=== PATIENT | female | born 1950 | race Caucasian/White ===

== ENCOUNTER 2018-11-18 10:51 | Inpatient (IN) ==
--- NOTE | 2018-11-18 11:17 | PROVIDER DOCUMENTATION ---
HPI-General Adult - General Chief Complaint: Extremity Pain Stated Complaint: FEET / LEGS RED / BRUISED Time Seen by Provider: 11/18/18 11:05 Source: patient Allergies/Adverse Reactions: Patient Allergies Allergy/AdvReac Type Severity Reaction Status Date / Time codeine AdvReac NAUSEA/VOMI Verified 11/18/18 11:02 TING Home Medications: Home Medication List Medication Instructions Recorded Confirmed Last Taken Type Allopurinol 300 mg PO DAILY 11/18/18 11/18/18 11/18/18 History Carbidopa/Levodopa [Sinemet 25/100] 1 tab PO TID 11/18/18 11/18/18 11/18/18 History Clindamycin [Cleocin] 300 mg PO Q8HR 11/18/18 11/18/18 11/18/18 History Duloxetine [Cymbalta] 60 mg PO DAILY 11/18/18 11/18/18 11/18/18 History Fenofibrate 54 mg PO DAILY 11/18/18 11/18/18 11/18/18 History Furosemide [Lasix] 80 mg PO DAILY 11/18/18 11/18/18 11/18/18 History Insulin NPH Hum/Reg Insulin Hm 35 unit SQ AC + HS 11/18/18 11/18/18 11/18/18 History [Humulin 70-30 Vial] Lisinopril [Zestril] 2.5 mg PO DAILY 11/18/18 11/18/18 11/18/18 History Melatonin 10 mg PO HS 11/18/18 11/18/18 11/17/18 History Metoprolol Succinate E.r. [Toprol 25 mg PO DAILY 11/18/18 11/18/18 11/18/18 History Xl] Pioglitazone [Actos] 30 mg PO DAILY 11/18/18 11/18/18 11/18/18 History Pramipexole Di-HCl [Mirapex] 1.5 mg PO Q8HR 11/18/18 11/18/18 11/18/18 History Simvastatin 20 mg PO DAILY 11/18/18 11/18/18 11/18/18 History Tramadol [Ultram] 50 mg PO BID 11/18/18 11/18/18 11/18/18 History - History of Present Illness -Gen Adult Nature of Presenting Problems: 67 YOF PRESENTS WITH C/O LLE CELLULITIS AND BLE EDEMA( CHRONIC AND REPORTS NO WORSE THAN USUAL). SHE HAS BEEN TREATED WITH BACTRIM AND THIS WAS CHANGES DUE TO KIDNEY FUNCTION AND IS NOW TAKING CLINDAMYCIN. SHE REPORTS THE REDNESS HAS GOTTEN WORSE. SHE ALSO NOTICED 2 BRUISES ON HER L FOOT AND SOME PAIN IN THIS FOOT. SHE DENIES FEVER, CHILLS, SOB, CP, N/V/D Location of Pain/Injury: reports: lower extremity Pain Radiation: reports: no radiation Quality of Pain: reports: aching Severity: reports: mild Onset/Duration: reports: other (CHRONIC BUT CELLULITIS PRESENT X A FEW WKS) Timing: reports: still present, getting worse Context/Activities at Onset: reports: none Modifying Factors: improves with: nothing Associated Symptoms: reports: denies symptoms Similar Symptoms Previously?: No Recently seen or treated by another doctor?: No Review of Systems - Adult - REVIEW OF SYSTEMS - ADULT Constitutional: reports: no symptoms reported. denies: see HPI, chills, fever, fatique, night sweats, weight gain, weight loss, other Eyes: reports: no symptoms reported. denies: see HPI, discharge, dry eyes, decreased vision, blurred vision, double vision, eye pain, redness, other Ears, Nose, Mouth & Throat: reports: no symptoms reported. denies: see HPI, ear discharge, ear pain, hearing loss, tinnitus, epistaxis, sinus problem, nose pain, loose teeth, mouth/dental pain, mouth swelling, hoarseness, throat pain, throat swelling, other Cardiovascular: reports: see HPI, edema, poor circulation (KNOWN VENOUS INS OF BLE). denies: no symptoms reported, chest pain, heart murmur, irregular heart rate, orthopnea, palpitations, PND, syncope, other Respiratory: reports: no symptoms reported. denies: see HPI, chronic cough, cough, dyspnea on exertion, excessive sputum production, hemoptysis, pleurisy, shortness of breath, wheezing, other Gastrointestinal: reports: no symptoms reported. denies: see HPI, abdominal pain, hematemesis, constipation, diarrhea, difficulty swallowing, frequent heartburn, nausea, poor appetite, rectal bleeding, vomiting, other Genitourinary: reports: no symptoms reported. denies: see HPI, dysuria, discharge, frequency, flank pain, frequent UTI's, hematuria, hesitency, incontinence, urinary retention, urgency, other Musculoskeletal: reports: see HPI, joint pain (L FOOT). denies: no symptoms reported, bone pain, back pain, frequent leg cramps, joint swelling, muscle aches, muscle weakness, neck pain, other Integumentary: reports: see HPI, skin sores/ulcer, skin thickening. denies: no symptoms reported, hives, hair loss, itching, mole changes, nail changes, rash, other Neurological: reports: no symptoms reported. denies: see HPI, ataxia, dizziness/vertigo, headache/migraines, loss of balance, numbness, paresthesia, seizure, slurred speech, syncope, tremors, other Psychiatric: reports: no symptoms reported. denies: see HPI, anxiety, anti- depressant use, alcohol/drug dependence, depression, emotional problems, insomnia, panic attacks, suicidal thoughts, other Endocrine: reports: no symptoms reported. denies: see HPI, change in skin pigment, excessive sweating, goiter, cold intolerance, heat intolerance, increased hunger, increased thirst, polyuria, other Hematologic/Lymphatic: reports: no symptoms reported. denies: see HPI, blood clots, easy bruising, low blood count, lymphedema, prolonged bleeding, swollen lymph nodes, transfusions, other Allergic/Immunologic: reports: no symptoms reported. denies: see HPI, allergic reactions, allergic rhinitis, asthma, eczema, food allergy, frequent infections, hay fever, hives, positive PPD, urticaria, other Past History - Adult - PAST MEDICAL HISTORY-ADULT Review of Records: reports: Nursing Assessment Review, Social history reviewed & non-contributory. Physical Exam-General - PHYSICAL EXAM-ADULT Initial Vital Signs Reviewed: Yes - CONSTITUTIONAL General Appearance: appears well, alert, no apparent distress - EYES Eyes: PERRL/EOMI, pink conjunctivae - HEAD, EARS, NOSE, MOUTH & THROAT HENMT: normocephalic/atraumatic, moist mucous membranes, normal ENT inspection - NECK Neck: non-tender, full range of motion, supple - RESPIRATORY Respiratory: chest non-tender, lungs clear, normal breath sounds, no pleuratic chest pain, no respiratory distress, no accessory muscle use - CARDIOVASCULAR Cardiovascular: normal peripheral pulses, regular rate, rhythm - GASTROINTESTINAL (ABDOMEN) Abdominal Exam: normal bowel sounds, non tender, soft - LYMPHATIC Lymphatic: no adenopathy - MUSCULOSKELETAL Extremity: erythema (LLE), pedal edema (BLE), swelling (BLE), tenderness (L FOOT/ANKLE) - SKIN Integumentary: normal color, normal turgor, warm/dry, erythema (LLE), warm (LLE) - NEUROLOGIC Neurologic: grossly normal - PSYCHIATRIC Psych/Mental Status: normal mood/affect, oriented x 3 Progress - PLAN OF CARE/RESULTS Progress/Plan/Lab Results: Vital Signs - 8 hr 11/18/18 10:57 Temperature 98 F Pulse Rate 80 Respiratory Rate 18 Blood Pressure 124/72 O2 Sat by Pulse Oximetry 97 Orders Category Date Time Status Saline Loc NOW Care 11/18/18 11:10 Active ANKLE 2 VIEWS LEFT [RAD] Stat Exams 11/18/18 11:10 Ordered FOOT COMPLETE LEFT [RAD] Stat Exams 11/18/18 11:10 Ordered CBC WITH ELECTRONIC DIFF [HEME] Stat Lab 11/18/18 11:10 Uncollected COMPREHENSIVE METABOLIC PANEL [CHEM] Stat Lab 11/18/18 11:10 Uncollected PROTIME WITH INR [COAG] Stat Lab 11/18/18 11:10 Uncollected PTT [COAG] Stat Lab 11/18/18 11:10 Uncollected Result Diagrams: 11/18/18 11:20 11/18/18 11:20 - XRAY 1 XRAY: Left XRAY Study: Ankle, Foot Impression: See EMR Report (EXAM: FOOT COMPLETE LEFT - 11/18/2018 HISTORY: PAIN, BRUISING TECHNIQUE: Left foot three views COMPARISON: None. FINDINGS: There is prominent calcaneal spurring at the Achilles tendon and plantar fascia insertions. There are degenerative changes elsewhere. There are apparent hammertoe deformities. There is accessory ossicle near the plantar cuboid. There is no fracture or dislocation identified. There are no erosive or destructive changes identified. IMPRESSION: Calcaneal spurring. Degenerative changes. No evidence of fracture or dislocation. Electronically signed by Yann Aguilar 11/18/2018 12:09 PM 11/18/18 1209 Interpreting Physician: Yann Aguilar MD Dictated Date/Time: 11/18/18 1208 cc: Ritu Fleming; Cheng Bergeron) - CONSULTS/PCP/HOSPITALIST Notification #1 *Consult/PCP/Hospitalist*: DR. GRANDE Time Discussed: 12:23 Consult Disposition: Admit Departure - Departure Date of Disposition Decision: 11/18/18 Time of Disposition Decision: 12:22 DIAGNOSIS: MARIANO (acute kidney injury), Cellulitis Disposition: ADMITTED INPATIENT 09 Certified Medical Emergency: Emergent Condition: Stable Additional Freetext Instructions: ED Follow Up Instructions: You have been treated by a care provider in the Emergency Department. These instructions are being provided to you so you can have an understanding of how to care for yourself upon discharge. Upon discharge from the Emergency Department, you are responsible for making arrangements for follow-up care by a physician of your choice. Take all prescribed medications as directed. Return to the Emergency Department immediately for any new or worsening symptoms. You may call the Physician Referral phone number at [phone] to obtain a list of Physicians who are taking new patients. Referrals and Follow-Ups: Cheng Bergeron [Primary Care Provider] - - Critical Care Note This patient required my direct & personal management of CC.: No Attestation - Physician/ DAVID Attestation Patient care was provided by Advanced Practice Provider:: Yes Advanced Practice Provider:: Ritu Fleming Advanced Practice Provider documentation review:: The Mid-level provider documentation, treatment plan and medical decision making was reviewed by the physician who agrees with all treatment and medical decision making by the P. The physician spent face to face time with patient:: No Advanced Practice Provider documentation review:: Supervising physician onsite and consulted in the evaluation and care of this patient. The physician did not have a face to face encounter with the patient.
[2018-11-18 11:40] LABS: BASO# 0.01 X1000 (0.0-0.2); BASO% 0.2 % (0.0-0.8); EOS# 0.08 X1000 (0.0-0.7); EOS% 1.5 % (0.0-10.0); HEMATOCRIT 36.2 % (37.0-47.0); HEMOGLOBIN 11.1 g/dL (12.0-16.0); IMM GRAN# 0.02 X1000 (0.0-0.04); IMM GRAN% 0.4 % (0.0-0.5); LYMPH# 0.85 X1000 (1.2-3.4); MCH 27.3 PG (27-31); MCHC 30.7 g/dL (33-37); MCV 89.2 FL (81-99); MONO# 0.27 X1000 (0.11-0.59); MONO% 5.1 % (1.7-9.3); MPV 10.4 FL (7.4-10.4); NEUT# 4.08 X1000 (1.4-6.5); NEUT% 76.8 % (42.2-75.2); PLT 170 X1000 (130-400); RBC 4.06 XMIL (4.2-5.4); RDW 16.7 % (11.5-14.5); WBC 5.31 X1000 (4.8-10.8)
[2018-11-18 11:58] LABS: AGAP 13; ALBUMIN 4.4 g/dL (3.5-5.0); ALKALINE PHOSPHATASE 61 U/L (32-104); BUN 56 mg/dL (8-22); CALCIUM 8.9 mg/dL (8.8-10.2); CHLORIDE 94 mmol/L (98-107); COSMO 290; CREATININE 2.6 mg/dL (0.5-0.9); ESTIMATED GFR 18; GLUCOSE 215 mg/dL (70-104); GOT 14 U/L (10-30); GPT < 5 U/L (10-36); SODIUM 134 mmol/L (136-145); TCO2 27 mmol/L (25-35); TOTAL PROTEIN 7.6 g/dL (6.3-8.3)
[2018-11-18 11:59] LABS: INR 1.78; PROTIME 21.6 Seconds (11.0-16.0); PTT 40.6 Seconds (22.3-41.8)
--- NOTE | 2018-11-18 12:09 | Diag Imaging Result Doc PS360 ---
EXAM: ANKLE 2 VIEWS LEFT - 11/18/2018 HISTORY: PAIN, BRUISING TECHNIQUE: AP and lateral left ankle two views COMPARISON: None. FINDINGS: There is soft tissue swelling. There is no fracture or dislocation identified. IMPRESSION: No evidence of fracture or dislocation. Electronically signed by Yann Aguilar 11/18/2018 12:07 PM
--- NOTE | 2018-11-18 12:11 | Diag Imaging Result Doc PS360 ---
EXAM: FOOT COMPLETE LEFT - 11/18/2018 HISTORY: PAIN, BRUISING TECHNIQUE: Left foot three views COMPARISON: None. FINDINGS: There is prominent calcaneal spurring at the Achilles tendon and plantar fascia insertions. There are degenerative changes elsewhere. There are apparent hammertoe deformities. There is accessory ossicle near the plantar cuboid. There is no fracture or dislocation identified. There are no erosive or destructive changes identified. IMPRESSION: Calcaneal spurring. Degenerative changes. No evidence of fracture or dislocation. Electronically signed by Yann Aguilar 11/18/2018 12:09 PM
[2018-11-18 14:34] LABS: UR CREAT RANDOM 39.8 mg/dL (11-20); UR PROT RANDOM 16.3 mg/dL
--- NOTE | 2018-11-18 14:57 | HISTORY AND PHYSICAL ---
CHIEF COMPLAINT: Extremity swelling and pain with bruise to left heel. HISTORY OF PRESENT ILLNESS: This is a 67-year-old female with a history of chronic lower extremity edema, vascular insufficiency, and lower extremity cellulitis. She states she noticed some bruising come up to her posterior left heel prompting her to come in for evaluation. X-ray of her ankle revealed no fracture or dislocation with x-ray of her foot showing calcaneal spurring. Labs revealed a creatinine of 2.6. Our only other creatinine is 09/25/2018 which was 1.2. The patient stated that she had been on 6 days of Bactrim 2 weeks ago which was changed to clindamycin by her physician. PAST MEDICAL HISTORY: Diabetes mellitus, hyperlipidemia, hypertension, chronic kidney disease stage 3, Parkinson's stage 2, lupus in remission, atrial fibrillation. PAST SURGICAL HISTORY: Cholecystectomy, tubal ligation, rotator cuff repair, and Achilles tendon rupture. SOCIAL HISTORY: She denies alcohol, tobacco, or illicit drug use. ALLERGIES: Codeine which causes nausea. HOME MEDICATIONS: A list will be obtained by the nursing staff and once verified will review and restart as appropriate. REVIEW OF SYSTEMS: Discussed with patient with pertinent positives stated in the HPI. She denied any syncope, dizziness, chest pain, palpitations, fevers or chills, any night sweats, PND, orthopnea, productive cough, any nausea, vomiting, diarrhea, constipation, black or bloody vomitus or stools, hematuria, dysuria, frequency, urgency. PHYSICAL EXAMINATION: GENERAL: This is a 67-year-old female who is lying on the stretcher in the emergency room in no distress. VITAL SIGNS: Blood pressure is 130/66 with a heart rate of 18, respirations are 97, temperature is 98 degrees oral, with room air saturations 96 to 98 percent. EYES: Pupils are equal, round, react to light. EOMs are intact. Sclerae are anicteric. HEENT: Normocephalic, atraumatic. Mucous membranes are moist. NECK: Supple with trachea midline. CARDIOVASCULAR: Regular rate and rhythm. S1 and S2 are appreciated. Peripheral pulses are palpable x4 extremities. PULMONARY: Breath sounds are clear with no increased work of breathing noted. Chest rises and falls symmetrically with respirations. GASTROINTESTINAL: Abdomen is soft, nontender, nondistended with bowel sounds in all 4 quadrants. SKIN: Warm and dry. She does have redness, warmth and edema to bilateral lower extremities from just below the knees down with bruising to her left posterior ankle as well as some signs of venous stasis. NEUROLOGIC: She is alert oriented x3. LABORATORY DATA: 1. WBC is 5.3 with hemoglobin 11.1, hematocrit 36.2, and platelets of 170,000. Sodium 134, potassium 5, BUN 56, creatinine 2.6 with a glucose of 215. Her GFR is 18. Her INR is 1.78. 2. Ankle x-ray revealed no evidence of fracture, dislocation. 3. Foot x-ray revealed calcaneal spurring and degenerative changes. ASSESSMENT AND PLAN: 1. Bilateral lower extremity cellulitis. Blood cultures have been drawn. Rocephin, elevate the foot of the bed with a Gatch at all times and monitor. Bilateral lower extremity Doppler will be obtained. 2. Acute kidney injury in the setting of chronic kidney disease.with recent Bactrim use. hold any renal toxic medications , renal dose medications as appropriate. IV hydration, keep strict I and O. Renal ultrasound will be obtained. 3. Diabetes mellitus type 2. pattern blood glucose with sliding scale insulin. 4. Hypertension. review her medications and restart as appropriate. 5. Parkinson's disease. continue her medication. 6. History of atrial fibrillation on chronic anticoagulation. continue Xarelto. 7. For deep venous thrombosis prophylaxis of course she is on Xarelto. 8. Gastrointestinal prophylaxis we will use Prilosec. 9. CBC and a renal profile in the morning. Plan has been discussed with Dr. Galarza. Further treatments pending hospital course. Dictated by SILAS Orourke for Chris Galarza MD cc: SILAS Orourke MD [facility]
--- NOTE | 2018-11-18 15:31 | Diag Imaging Result Doc PS360 ---
EXAM: US RENAL 2 (RETROPER) COMPLETE - 11/18/2018 HISTORY: MARIANO TECHNIQUE: Bilateral renal ultrasound COMPARISON: None. FINDINGS: The right kidney measures 9.8 x 5.6 x 5 cm in size, with cortical thickness of approximately 0.9 cm. Mass at The left kidney measures 10.3 x 5.3 x 5.4 cm in size, with cortical thickness of approximately 1.1 cm. There is no discrete renal mass, stone, or hydronephrosis identified. Images of the urinary bladder demonstrate no lesion. IMPRESSION: No discrete renal abnormality. Electronically signed by Yann Aguilar 11/18/2018 3:29 PM
[2018-11-18] MEDS: NS 1,000 ML IV SCH (16:59)
[2018-11-18] MEDS: SINEMET 25/100 PO SCH (16:59)
[2018-11-18] MEDS: HUMALOG (PARKWAY) SUBQ SCH ×2 (17:00→22:13)
[2018-11-18] MEDS: ROCEPHIN 1 GM in NS 50 ML IV SCH (17:00)
[2018-11-18 17:44] LABS: BILIRUBIN URINE NEGATIVE (NEGATIVE); BLOOD URINE NEGATIVE (NEGATIVE); GLUCOSE URINE NEGATIVE (NEGATIVE); KETONE URINE NEGATIVE (NEGATIVE); LEUKOCYTES URINE NEGATIVE (NEGATIVE); NITRITE URINE NEGATIVE (NEGATIVE); PROTEIN URINE TRACE mg/dL (NEGATIVE); SP GRAVITY URINE 1.005; UROBILINOGEN URINE NORMAL
[2018-11-18 17:45] LABS: CLARITY CLEAR (CLEAR); COLOR YELLOW
[2018-11-18 17:49] LABS: URINE SOURCE CLEAN CATCH
[2018-11-18 17:50] LABS: URINE BACTERIA NEGATIVE /HFP; URINE CAST NONE SEEN /LPF; URINE CRYSTAL NONE SEEN /HPF; URINE EPITHELIAL CELLS >10 /HPF (<10); URINE RBC <10 /HPF (<10); URINE WBC <10 /HPF (<10); URINE YEAST NONE SEEN /HPF
--- NOTE | 2018-11-18 20:57 | HISTORY AND PHYSICAL ---
ADDENDUM: I saw the patient [id number] while she was still at the emergency room. This is a 67- year-old female who has been having left leg cellulitis and now has developed acute kidney injury in the setting of chronic kidney disease with also recent Bactrim usage with possible intrarenal tubular crystallization off Bactrim. She is going to be admitted to the medical-surgical floor and we are going to give her IV hydration along with antibiotic ceftriaxone intravenously to address her cellulitis. Further recommendations will be given as per hospital course. I fully agree with the assessment and plan of nurse practitioner Kathy Henriquez. cc: Chris Galarza MD
[2018-11-18] MEDS: NEURONTIN PO PRN (22:14)
[2018-11-19] MEDS: NS 1,000 ML IV SCH (05:32)
[2018-11-19] MEDS: PRILOSEC PO SCH (06:03)
[2018-11-19] MEDS: NEURONTIN PO PRN ×2 (06:03→17:14)
[2018-11-19] MEDS: HUMALOG (PARKWAY) SUBQ SCH ×4 (06:04→20:35)
[2018-11-19 06:28] LABS: BASO# 0.01 X1000 (0.0-0.2); BASO% 0.2 % (0.0-0.8); EOS# 0.09 X1000 (0.0-0.7); EOS% 2.1 % (0.0-10.0); HEMOGLOBIN 10.5 g/dL (12.0-16.0); IMM GRAN# 0.01 X1000 (0.0-0.04); IMM GRAN% 0.2 % (0.0-0.5); LYMPH# 1.07 X1000 (1.2-3.4); LYMPH% 24.9 % (20.5-51.1); MCH 27.1 PG (27-31); MCV 90.4 FL (81-99); MONO# 0.28 X1000 (0.11-0.59); MONO% 6.5 % (1.7-9.3); MPV 10.6 FL (7.4-10.4); NEUT# 2.83 X1000 (1.4-6.5); NEUT% 66.1 % (42.2-75.2); PLT 146 X1000 (130-400); RBC 3.87 XMIL (4.2-5.4); WBC 4.29 X1000 (4.8-10.8)
[2018-11-19 06:42] LABS: ALBUMIN 3.8 g/dL (3.5-5.0); CALCIUM 8.7 mg/dL (8.8-10.2); PHOSPHORUS 3.6 mg/dL (2.7-4.5); POTASSIUM 4.4 mmol/L (3.5-5.1)
[2018-11-19] MEDS: SINEMET 25/100 PO SCH ×3 (09:57→16:58)
[2018-11-19] MEDS: CYMBALTA PO SCH (09:57)
--- NOTE | 2018-11-19 13:23 | Extremity Venous Study ---
EXAM: Venous U/S Bilateral Legs 11/19/2018 HISTORY: LE edema TECHNIQUE: Compression venous ultrasound of the lower extremities with color Doppler flow COMMENT: The deep veins of the lower extremities are compressible and demonstrate normal color Doppler flow with augmentation. There is no evidence of superficial venous thrombosis. IMPRESSION: No evidence of deep venous thrombosis. Electronically signed by Man Pascual 11/19/2018 1:21 PM
[2018-11-19] MEDS: ROCEPHIN 1 GM in NS 50 ML IV SCH (14:41)
[2018-11-19] MEDS: XARELTO PO SCH (17:08)
--- NOTE | 2018-11-19 19:13 | PROGRESS NOTE ---
DATE: 11/19/2018 SUBJECTIVE: Patient notes that she is feeling a lot better although she is still having some pretty significant ankle pain. She notes this is new. Seems to be hurting worse with ambulation. OBJECTIVE: Temperature 98, pulse 77, respiratory rate 18, BP 146/77.General: Patient is awake currently in no distress. HEENT: Normocephalic. Neck: Supple. Cardiovascular: Regular rate. Chest: Clear. Abdomen: Soft. Extremities: Moves all extremities. Does have some erythema around her left ankle, more so than her right, but also some pink bruising noted. ASSESSMENT: 1. Bilateral lower extremity cellulitis appears to be improved. 2. Left ankle pain. 3. Acute kidney injury. Creatinine is improved down to 2.0 from 2.6. This is felt to be caused from Bactrim. 4. Diabetes type 2. 5. Hypertension. 6. Parkinson disease. 7. History of atrial fibrillation. PLAN: We will continue patient in the hospital. Continue antibiotics. Hopefully, her ankle pain will improve, if not may need imaging studies tomorrow. Further orders as needed. Hopefully home over the next 1 or 2 days. cc: Srikanth Swanson MD
[2018-11-19] MEDS ORDERED: ZYRTEC PO SCH (20:30)
[2018-11-19] MEDS: MIRAPEX PO SCH (20:36)
[2018-11-19] MEDS: MELATONIN PO SCH (20:36)
[2018-11-20] MEDS: PRILOSEC PO SCH (06:12)
[2018-11-20] MEDS: MIRAPEX PO SCH ×3 (06:12→20:24)
[2018-11-20] MEDS: NEURONTIN PO PRN ×3 (06:12→20:28)
[2018-11-20] MEDS: HUMALOG (PARKWAY) SUBQ SCH ×4 (06:13→21:00)
[2018-11-20 06:36] LABS: POTASSIUM 4.3 mmol/L (3.5-5.1)
[2018-11-20 06:37] LABS: ALBUMIN 3.8 g/dL (3.5-5.0); CALCIUM 8.5 mg/dL (8.8-10.2); CREATININE 1.5 mg/dL (0.5-0.9); PHOSPHORUS 2.8 mg/dL (2.7-4.5)
[2018-11-20] MEDS: CYMBALTA PO SCH ×2 (08:37→20:23)
[2018-11-20] MEDS: SINEMET 25/100 PO SCH ×3 (08:37→17:14)
[2018-11-20] MEDS: TRICOR PO SCH (08:37)
[2018-11-20] MEDS ORDERED: TOPROL XL PO SCH (09:00)
--- NOTE | 2018-11-20 14:36 | PROGRESS NOTE ---
DATE: 11/20/2018 SUBJECTIVE: The patient continues to report pain in the left ankle. Even though we have done an x-ray that said no fractures, she still has swelling and pain that does not improve. That pain is worse with ambulation. OBJECTIVE: Vital Signs: Temperature 97.6 degrees, heart rate 79, respiratory rate 18, blood pressure 161/75, O2 saturation 100% on room air. General: This is a 67-year-old female, lying in bed in no acute distress. Cardiovascular: S1, S2 heard. No murmurs, gallops, or rubs. Regular rate and rhythm. Respiratory: Clear bilaterally to auscultation. No work of breathing or using accessory muscles. Abdomen: Soft, nontender to palpation. Bowel sounds present. No organomegaly. Extremities: The patient has minimal erythema around the left ankle. I do see some swelling all over the foot up to probably two-thirds of the leg. Peripheral pulses present in both legs. Neurological: The patient is alert and oriented x3. Moves all 4 extremities. LABORATORY DATA: Renal function: Creatinine is 1.5 with BUN 34. No BMP from today. ASSESSMENT AND PLAN: 1. Bilateral lower extremity cellulitis. That appears to be improved. The patient is on ceftriaxone 1 gram intravenously every 24 hours. She has been on Bactrim that has caused acute kidney injury. At this point, will continue with the same management. 2. Left ankle pain. Unfortunately, even though clinically this patient is doing better, her left ankle pain is still bothering her. In that regard, I am going to consult Orthopedics, and will go from there. 3. Acute kidney injury. Creatinine continues to improve. The patient reports that she has some chronic kidney disease, but she does not know what the stage is. The patient has been taking Bactrim, which is probably what has caused worsening renal function. At this point, will continue with the same management. 4. Diabetes mellitus type 2. Will continue with sliding scale insulin, and Accu-Chek before meals and also at bedtime. 5. Hypertension. Will continue home medications. 6. Parkinson's disease. Will continue home medications. 7. History of atrial fibrillation, stable. The patient reports that sometimes she gets dyspnea at minimal effort, so at this point will check an echocardiogram and will go from there. 8. Disposition. Will see what Orthopedics has to say. cc: Manuel Quarles MD
[2018-11-20] MEDS: ROCEPHIN 1 GM in NS 50 ML IV SCH (15:34)
[2018-11-20] MEDS: HUMULIN 70/30 (PARKWAY) SUBQ SCH (17:14)
[2018-11-20] MEDS: XARELTO PO SCH (17:14)
[2018-11-20] MEDS: TOPROL XL PO SCH (20:23)
[2018-11-20] MEDS: MELATONIN PO SCH (20:23)
[2018-11-20] MEDS: ZYRTEC PO SCH (20:24)
[2018-11-21] MEDS: MIRAPEX PO SCH ×3 (05:08→20:17)
[2018-11-21] MEDS: NEURONTIN PO PRN ×2 (05:09→13:05)
[2018-11-21 05:52] LABS: BASO# 0.01 X1000 (0.0-0.2); BASO% 0.2 % (0.0-0.8); EOS# 0.18 X1000 (0.0-0.7); EOS% 3.8 % (0.0-10.0); HEMATOCRIT 32.3 % (37.0-47.0); HEMOGLOBIN 9.5 g/dL (12.0-16.0); IMM GRAN# 0.01 X1000 (0.0-0.04); IMM GRAN% 0.2 % (0.0-0.5); LYMPH# 1.08 X1000 (1.2-3.4); LYMPH% 22.9 % (20.5-51.1); MCH 26.9 PG (27-31); MCHC 29.4 g/dL (33-37); MCV 91.5 FL (81-99); MONO# 0.31 X1000 (0.11-0.59); MONO% 6.6 % (1.7-9.3); NEUT# 3.13 X1000 (1.4-6.5); NEUT% 66.3 % (42.2-75.2); PLT 153 X1000 (130-400); RBC 3.53 XMIL (4.2-5.4); WBC 4.72 X1000 (4.8-10.8)
[2018-11-21 06:09] LABS: CALCIUM 8.6 mg/dL (8.8-10.2); CREATININE 1.6 mg/dL (0.5-0.9); POTASSIUM 4.3 mmol/L (3.5-5.1)
[2018-11-21 06:13] LABS: CALCIUM 8.4 mg/dL (8.8-10.2); CREATININE 1.6 mg/dL (0.5-0.9); PHOSPHORUS 3.1 mg/dL (2.7-4.5); POTASSIUM 4.5 mmol/L (3.5-5.1)
[2018-11-21] MEDS: PRILOSEC PO SCH (06:20)
[2018-11-21] MEDS: HUMALOG (PARKWAY) SUBQ SCH ×4 (06:44→21:26)
[2018-11-21] MEDS: SOLU-MEDROL IV SCH ×2 (08:57→17:31)
[2018-11-21] MEDS: SINEMET 25/100 PO SCH ×3 (08:57→17:31)
[2018-11-21] MEDS: TRICOR PO SCH (08:57)
[2018-11-21] MEDS: HUMULIN 70/30 (PARKWAY) SUBQ SCH ×2 (08:57→17:58)
[2018-11-21] MEDS ORDERED: TORADOL IV SCH (09:00)
[2018-11-21] MEDS: ZOSYN 2.25 GM in NS 50 ML IV SCH ×3 (10:55→21:36)
[2018-11-21] MEDS ORDERED: TEFLARO IV SCH ×2 (11:00)
[2018-11-21] MEDS ORDERED: TEFLARO 400 MG in NS 250 ML IV ONE (11:00)
[2018-11-21] MEDS ORDERED: NS IV SCH (11:00)
--- NOTE | 2018-11-21 12:34 | PROGRESS NOTE ---
DATE: 11/21/2018 SUBJECTIVE: Patient continues to have moderate pain in the left ankle, and today is a little bit more swollen. The pain is getting worse with ambulation. OBJECTIVE: Vital Signs: Temperature 97.9 degrees, heart rate 60, respiratory rate 18, blood pressure 110/62, and O2 saturation 97% on room air. General: This is a 67-year-old female lying in bed in no acute distress. Cardiovascular: S1, S2 heard. No murmurs, gallops, or rubs. Regular rate and rhythm. Respiratory: Clear bilaterally to auscultation. No work of breathing or using accessory muscles. Abdomen: Soft and nontender to palpation. Bowel sounds present. No organomegaly. Extremities: The patient has some minimal erythema around the left ankle, and also some around the leg. There is swelling all over the foot up to 2/3 of the leg. Peripheral pulses present in both legs. Neurological: Patient alert and oriented x3. Moves all 4 extremities. LABORATORY DATA: White cell count 4.72, hemoglobin 9.5, hematocrit 32.3 and platelets 153,000 with creatinine 1.6. ASSESSMENT AND PLAN: 1. Bilateral lower extremity cellulitis. I think at this point we will change ceftriaxone to something much more stronger. In this case, it is going to be Teflaro and Zosyn. We will continue with the same management. Because of the pain and considering her renal function, we will use some Solu-Medrol and will go from there. 2. Acute kidney injury. Creatinine continues to improve. I think she has chronic kidney disease stage 2. At this point, we will continue to monitor. 3. Diabetes mellitus type 2. We will continue with sliding scale insulin and Accu-Chek before meals, and also at bedtime. 4. Hypertension that is under control. We will continue home medications. 5. Parkinson's disease. We will continue home medication. 6. History of atrial fibrillation. We will continue with Xarelto. DISPOSITION: 1. We have consulted Orthopedics for the left ankle pain. We have ordered an MRI of the left ankle. We will see what it shows. We have changed antibiotics for this patient. cc: MD WILLA Zarate
--- NOTE | 2018-11-21 16:48 | Diag Imaging Result Doc PS360 ---
EXAM: MRI LOW EXTREMITY W/O CON-LEFT HISTORY: suspected osteomyelitis left ankle TECHNIQUE: Routine without contrast. COMPARISON: None. FINDINGS: There is markedly abnormal signal and enlargement of the tibialis anterior tendon and sheath within the ankle consistent with tendinitis and possibly infectious tenosynovitis. The abnormal signal and enlargement extends to its insertion on the medial cuneiform. There is associated skin thickening and subcutaneous edema consistent with cellulitis. There is a focal rounded thickening of the tibialis anterior tendon best seen image 15 sequence nine. Findings are suggestive of a focal tendon rupture. Correlate clinically. There is mild T1 hypointensity/T2 hyperintensity within the medial cuneiform. This may represent reactive edema or developing osteomyelitis. The remainder of the bone marrow signal intensity is within normal limits. Achilles and lateral tendons are unremarkable. There is probable benign tenosynovitis of the tibialis posterior tendon and peroneal tendons. No associated tendinitis. No bony fracture is identified. There is appropriate fat within the sinus Tarsi.. IMPRESSION: 1.Suspect infectious tenosynovitis/tendinitis of the tibialis anterior tendon. There is a suggestion of a proximal focal tendon rupture. Correlate clinically. There is associated cellulitis. 2.Mild signal abnormality within the medial cuneiform which could represent reactive edema or developing osteomyelitis. 3.Possible benign tenosynovitis of the tibialis posterior and peroneal tendons. Electronically signed by Frances Rosario 11/21/2018 4:46 PM
[2018-11-21] MEDS: XARELTO PO SCH (17:32)
[2018-11-21] MEDS: MELATONIN PO SCH (20:17)
[2018-11-21] MEDS: TOPROL XL PO SCH (20:18)
[2018-11-21] MEDS: CYMBALTA PO SCH (20:19)
[2018-11-21] MEDS: ZYRTEC PO SCH (20:19)
--- NOTE | 2018-11-21 20:53 | EKG Report ---
Test Performed on : 11/21/2018 8:01:38 PM Test Reason : Pauses Blood Pressure : / mmHG Vent. Rate : 109 BPM Atrial Rate : 131 BPM P-R Int : 000 ms QRS Dur : 090 ms QT Int : 298 ms P-R-T Axes : 000 -33 046 degrees QTc Int : 401 ms Atrial fibrillation. with rapid ventricular response. Left axis deviation Minimal voltage criteria for LVH, may be normal variant Nonspecific ST abnormality Abnormal ECG No previous ECGs available Confirmed by Toni Magallanes MD ([id number]) on 11/29/2018 3:17:14 PM
[2018-11-21] MEDS: CARDIZEM PO SCH (21:36)
--- NOTE | 2018-11-21 21:42 | ORTHOPAEDICS CONSULTATION ---
DATE: 11/21/2018 CHIEF COMPLAINT: Extremity swelling and pain with a bruise to her left ankle. HISTORY OF PRESENT ILLNESS: This is a 67-year-old female with history of diabetes mellitus, hypertension, hyperlipidemia, chronic kidney disease stage 3, Parkinson's, lupus, and atrial fibrillation. She reports that she noted some bruising come up on her left ankle for a few days. She states that her ankle began to swell and became severely painful. She came to the hospital to be evaluated and x-rays were performed at that time. X-ray showed no fracture or dislocation in the foot or ankle. Orthopedics was consulted to come and see the patient. PAST SURGICAL HISTORY: She has had: 1. Cholecystectomy. 2. Tubal ligation. 3. Rotator cuff repair. 4. Achilles tendon repair. SOCIAL HISTORY: Patient denies alcohol, tobacco, or drug use. ALLERGIES: The patient is allergic to codeine and Bactrim. HOME MEDICATIONS: List will need to be obtained. REVIEW OF SYSTEMS: A 12 point review of systems was performed and pertinent positives as listed in HPI. PHYSICAL EXAMINATION: General: The patient is awake, alert, sitting on the bed and in no distress. Vital Signs: Temperature 97.9 degrees, pulse rate 86, respiratory rate 20, blood pressure 139/71, oxygen saturation 90% on room air. HEENT: Head is atraumatic, normocephalic. Eyes equal, round, reactive. Neck: Supple. Cardiovascular: Regular rate and rhythm at this time. Pulmonary: There is equal chest expansion, rise, and fall. Gastrointestinal: Abdomen is soft and nontender. Extremities: Left lower extremity does have some mild redness and warmth to it. There is some edema to the left ankle. There is decreased range of motion to the ankle due to pain. There are good pedal pulses. There is good capillary refill in the toes. There is some decreased sensation along the left lower extremity. There is a small 3 mm abrasion to the anterior portion of her left lower extremity that the patient stated she got several days ago and it began to turn red. LABORATORY DATA: White blood cell 4.72, hemoglobin 9.5, hematocrit 32.3, platelets 153,000. INR 1.78. Sodium 135, potassium 4.3, chloride 102, BUN 27, creatinine 1.6, glucose 116, calcium is 8.6. ASSESSMENT: 1. Left lower extremity cellulitis. 2. Osteomyelitis of the medial cuneiform. 3. Tibialis anterior tendon rupture. PLAN: At this time, with the patient's history and present illness, we recommend 6 to 8 weeks of intravenous antibiotic therapy via Dr. Nassar or Infectious Disease. The patient will need to follow up in clinic and likely go into a boot for about 6 weeks to see if the infection can calm down before any type of surgery can be discussed. The patient will need to follow up in clinic to see how she is doing. We will follow her and check back on her later to see how she is doing. The patient will follow up with Dr. Sheldon in the office and they will come up with a further plan for her when her infection gets under control. Dictated by SILAS Strong for Hermilo Sheldon MD cc: SILAS Strong MD
[2018-11-22] MEDS: CARDIZEM PO SCH ×4 (03:49→21:48)
[2018-11-22] MEDS: ZOSYN 2.25 GM in NS 50 ML IV SCH ×2 (03:57→09:29)
[2018-11-22] MEDS ORDERED: NS IV SCH (04:00)
[2018-11-22] MEDS ORDERED: TEFLARO IV SCH (04:00)
[2018-11-22] MEDS: MIRAPEX PO SCH ×3 (04:12→21:52)
[2018-11-22] MEDS: SOLU-MEDROL IV SCH (04:12)
[2018-11-22] MEDS: PRILOSEC PO SCH (06:43)
[2018-11-22] MEDS: HUMALOG SUBQ SCH ×4 (06:46→21:53)
[2018-11-22] MEDS ORDERED: HUMALOG SUBQ SCH (07:00)
[2018-11-22] MEDS: HUMULIN 70/30 SUBQ SCH ×2 (07:08→16:53)
[2018-11-22] MEDS ORDERED: NS 250 ML ONE (09:04)
--- NOTE | 2018-11-22 09:19 | EKG Report ---
Test Performed on : 11/22/2018 09:09:13 AM Test Reason : convert to SB Blood Pressure : / mmHG Vent. Rate : 055 BPM Atrial Rate : 055 BPM P-R Int : 312 ms QRS Dur : 100 ms QT Int : 458 ms P-R-T Axes : 024 -20 -15 degrees QTc Int : 438 ms Sinus bradycardia. with 1st degree AV block. Minimal voltage criteria for LVH, may be normal variant Borderline ECG When compared with ECG of 21-NOV-2018 20:01, (Unconfirmed) Sinus rhythm. has replaced Atrial fibrillation. Vent. rate has decreased BY 54 BPM T wave inversion now evident in Inferior leads Confirmed by Shira St MD ([id number]) on 11/22/2018 12:11:34 PM
[2018-11-22 09:21] LABS: CALCIUM 9.2 mg/dL (8.8-10.2); CREATININE 1.2 mg/dL (0.5-0.9); POTASSIUM 5.2 mmol/L (3.5-5.1)
[2018-11-22] MEDS: SINEMET 25/100 PO SCH ×3 (09:24→16:52)
[2018-11-22] MEDS: TRICOR PO SCH (09:24)
[2018-11-22 10:55] LABS: INR 1.54; PROTIME 18.8 Seconds (11.0-16.0)
--- NOTE | 2018-11-22 13:46 | CONSULTATION ---
DATE OF CONSULTATION: 11/22/2018 IMPRESSION: 1. Episode of atypical atrial flutter with rapid ventricular rate now converted back to sinus rhythm. Patient has history of previous paroxysmal atrial fibrillation, and has already been on anticoagulation with Xarelto. Long-term along with low-dose beta gaurav. 2. Currently admitted with left lower extremity. Cellulitis and apparent osteomyelitis of left heel. Patient has also been found have tibialis anterior tendon rupture. She has been treated with antibiotics and immobilization. 3. Type 2 diabetes mellitus. 4. Hypertension. 5. Chronic kidney disease stage 3. RECOMMENDATIONS: 1. Gently increase rate control measures cautiously due to concerns regarding potential sinus node dysfunction. Addition of low-dose Cardizem reasonable. Alternatively, may consider gently increasing metoprolol dose. Need to guard against excessive bradycardia given potential for tachycardia/bradycardia syndrome. 2. Continue anticoagulation with Xarelto. 3. Conservative cardiovascular treatment plans overall in this setting. HISTORY: This 68-year-old white female with past history of previous atrial fibrillation episode, type 2 diabetes mellitus, hypertension, hyperlipidemia, and chronic kidney disease stage 3 was admitted for discomfort and left lower extremity swelling. She has had some bruising in her distal left lower extremity which has not been healing. She has been found to have osteomyelitis of the left heel, left lower extremity cellulitis, and tibialis anterior tendon rupture. She is being treated with antibiotics and immobilization at present. While monitored, she demonstrated episode of atypical atrial flutter with rapid ventricular rate. She spontaneously converted back to sinus rhythm. There is no history of coronary disease or angina. She is not very active. PAST MEDICAL HISTORY: 1. Previous atrial fibrillation. 2. Type 2 diabetes mellitus. 3. Obesity. 4. Hyperlipidemia. 5. Hypertension. 6. Chronic kidney disease stage 3. 7. Parkinson's disease. 8. Lupus. 9. Venous insufficiency lower extremities. 10. Obstructive sleep apnea. PAST SURGICAL HISTORY: Includes cholecystectomy, tubal ligation, rotator cuff repair and Achilles tendon repair. ALLERGIES: She is allergic or intolerant to codeine. MEDICATIONS: As listed. SOCIAL HISTORY: She is . Retired. She lives at home. She does not smoke or use alcohol. FAMILY HISTORY: Negative for premature coronary disease. REVIEW OF SYSTEMS: Pulmonary: Noncontributory beyond history of present illness. Gastrointestinal: Noncontributory beyond history of present illness. Constitutional: Noncontributory beyond history of present illness. Remainder of review of systems negative/noncontributory beyond history of present illness with 14 total systems reviewed. PHYSICAL EXAMINATION: General: An obese older white female in no distress. Vital signs: Blood pressure 137/74, heart rate 64 and regular, and weight 256 pounds. HEENT: Extraocular movements appear intact. Mucous membranes moist. Neck: Supple without jugular venous distention. There are no carotid bruits. Chest: Clear to auscultation. Cardiovascular: Cardiac exam reveals a regular rate and rhythm without appreciable murmur or gallop. Abdomen: Soft. Bowel sounds are normal. Extremities: The left lower extremity has an immobilizer on the distal left lower extremity. There is no significant edema in the distal right lower extremity. Neurologic: Exam reveals her to be alert and fully oriented. Speech is fluent. Moves all 4 extremities equally well. PERTINENT DATA: Twelve lead EKG performed this morning after she converted back to sinus rhythm demonstrates sinus bradycardia at 55 beats per minute and first-degree AV block. Nonspecific T- wave abnormality demonstrated. LABORATORY DATA: Sodium 141, potassium 5.2, chloride 105, carbon dioxide 23, BUN 28, creatinine 1.2, glucose 216, white blood cell count 4.72, hematocrit 32.3, and platelet count 153,000. cc: Rajesh Barber MD
[2018-11-22] MEDS: ROCEPHIN 2 GM in NS 50 ML IV SCH (15:05)
[2018-11-22] MEDS: CUBICIN 700 MG in NS 100 ML IV SCH (15:06)
[2018-11-22] MEDS: NEURONTIN PO PRN ×2 (15:38→21:47)
[2018-11-22] MEDS: XARELTO PO SCH (16:52)
--- NOTE | 2018-11-22 17:20 | PROGRESS NOTE ---
DATE: 11/22/2018 INTERVAL HISTORY: The patient's pain is slowly improving. Pretty comfortable at rest. He has pain with ambulation still. No acute events overnight. No new complaints. REVIEW OF SYSTEMS: A 12-point review of systems negative except as per interval history. LABS: Sodium 141, potassium 5.2, bicarbonate 23, BUN 28, creatinine 1.2, glucose 195 to 384. VITALS: T-max 98.3 degrees, pulse 60, respirations 15, blood pressure 113/81, O2 saturation 99% on room air. PHYSICAL EXAM: General: No acute distress. Vitals: As above. HEENT: Normocephalic, atraumatic. Moist mucous membranes. No cervical adenopathy. Cardiovascular: Regular rate and rhythm. No murmurs noted. Pulmonary: Clear to auscultation bilaterally. No wheezing, rales or rhonchi. Abdomen: Soft, nontender, nondistended. Bowel sounds positive. Extremities: Peripheral pulses decreased but intact. Left lower extremity in heavily dressed and boot. Neurologic: Cranial nerves grossly intact. No focal deficits. Psychiatric: Normal mood and affect. Awake, alert, oriented x3. Skin: No new rashes or lesions identified. ASSESSMENT AND PLAN: 1. Lower extremity cellulitis. Cellulitis component for infection, much improved on Zosyn and fluoro. ID on board and has adjusted antibiotics to Rocephin and daptomycin in light of osteomyelitis as below. 2. Left lower extremity osteomyelitis and tibialis anterior tendon rupture. The patient will require extended course of IV antibiotics. Transitioned to Rocephin and daptomycin today by Infectious Disease. Obtaining PICC line. Will set up home IV antibiotics and hopefully that can be arranged. The patient to be discharged home tomorrow. 3. Acute kidney injury on chronic kidney disease 3. Patient with baseline creatinine 1.2. Creatinine up to 2.6 on admission with treatment of infection and hydration. Creatinine has come back down to baseline. 4. Hyperkalemia. Mildly elevated potassium today. Will continue IV fluids, but no need for acute intervention at this time. 5. Diabetes mellitus type 2. Control not ideal. I adjusted sliding scale and will could monitor. 6. Parkinson's. Continue home medications. 7. Atrial fibrillation on Xarelto at home. Held for PICC placement. Will restart once PICC has been placed. 8. Hypertension. Reasonable control on current regimen with diltiazem and Toprol. Will likely go and restart home lisinopril on discharge if kidney function remains stable. We will likely hold home Lasix given dehydration and kidney injury on admission.
--- NOTE | 2018-11-22 19:06 | INFECTIOUS DISEASE CONSULT REP ---
DATE: 11/22/2018 CONCLUSION: The patient injured her left leg by falling on it and as seen on MRI, the following findings were found in the leg: Tendinitis, tenosynovitis, cellulitis, and osteomyelitis. RECOMMENDATIONS: I have discontinued ceftaroline and Zosyn and instead I put the patient on Rocephin 2 g IV daily and daptomycin 700 mg IV daily. Some of the side effects of the antibiotics, including rash, diarrhea and muscle toxicity have been explained to the patient who agrees with treatment. DISCUSSION: The patient fell on her leg. The leg became swollen and very painful. On MRI the findings that I mentioned above were found. The patient is having pain in the leg and also she has noted swelling and erythema of the skin. REVIEW OF SYSTEMS: Eyes and ears: She wears glasses but her hearing is okay. Neck: No stiffness. Respiratory: No cough or shortness of breath. Cardiac: No chest pain or palpitations. GI: No nausea, vomiting, or diarrhea. Genitourinary: No dysuria or flank pain. Bones, joints and muscles: See present illness. Neurologic: The patient has ataxia. She also has tremors due to her having Parkinson disease. PREVIOUS HOSPITALIZATIONS AND OPERATIONS: She has had a cholecystectomy, bilateral rotator cuff surgery, laminectomy of the spine, and surgery on her Achilles tendon. MEDICAL DISEASES: Positive for obesity, diabetes mellitus, Parkinson disease, and systemic lupus. At 1 time, the patient's blood pressure was elevated, but she said now it no longer is. Gout and hyperlipidemia. INFECTIOUS DISEASE HISTORY: Positive for UTI. Negative for pneumonia. FAMILY HISTORY: Positive for stroke, hypertension and cancer. SOCIAL HISTORY: The patient lives in the [facility]. She is a . She lives with 2 of her family members. She has 2 dogs and fish for pets. ALLERGIES: She has what she called an allergy to codeine which actually is an adverse reaction, which is nausea. The patient told me that she also is allergic to Norvasc and Septra but that is not listed in the computer. SOCIAL HISTORY: The patient does not smoke, drink alcoholic beverages or abuse drugs. HOME MEDICATIONS: The patient's medications taken at home include allopurinol, Sinemet, clindamycin, Cymbalta, fenofibrate, Lasix, gabapentin, insulin, lisinopril, melatonin, metoprolol, Actos, Mirapex, Xarelto, simvastatin and tramadol. PHYSICAL EXAMINATION: Vital Signs: Temperature is 98 degrees, pulse 59, respirations 18, blood pressure 126/54. The patient is 5 feet 6 inches tall, weighs 256 pounds. General: This is an obese, elderly female. She is in no acute distress. Head/eyes/ears/nose/throat: She can hear my spoken words and see near objects. She is wearing glasses. She does not have any white coating on her tongue. Neck: No meningismus. Lungs: Clear to auscultation. Cardiovascular: Heart rate is regular. Abdomen: Soft and nontender. Extremities: The patient's right leg is edematous but not erythematous. The patient's left leg is more swollen than the right leg and there also is erythema involving the lower part of the leg. Neurologic: The patient is awake. She can move her extremities. There is no tremor. Her sensation is intact to touch. Thank you for the consult. cc: Klever Sanchez MD
[2018-11-22] MEDS: ZYRTEC PO SCH (21:48)
[2018-11-22] MEDS: CYMBALTA PO SCH (21:48)
[2018-11-22] MEDS: TOPROL XL PO SCH (21:48)
[2018-11-22] MEDS: MELATONIN PO SCH (21:53)
[2018-11-23] MEDS ORDERED: MIRAPEX PO SCH (05:00)
--- NOTE | 2018-11-23 06:39 | EKG Report ---
Test Performed on : 11/23/2018 06:25:16 AM Test Reason : afib Blood Pressure : / mmHG Vent. Rate : 053 BPM Atrial Rate : 053 BPM P-R Int : 232 ms QRS Dur : 096 ms QT Int : 478 ms P-R-T Axes : 038 -08 003 degrees QTc Int : 448 ms Sinus bradycardia. with 1st degree AV block. Otherwise normal ECG When compared with ECG of 22-NOV-2018 09:09, No significant change was found Confirmed by Shira St MD ([id number]) on 11/29/2018 8:33:31 AM
[2018-11-23] MEDS: PRILOSEC PO SCH (06:41)
[2018-11-23] MEDS: HUMALOG SUBQ SCH ×2 (06:44→13:42)
[2018-11-23] MEDS: HUMULIN 70/30 SUBQ SCH (06:45)
[2018-11-23] MEDS: NEURONTIN PO PRN (07:22)
[2018-11-23 08:11] LABS: INR 1.83; PROTIME 21.5 Seconds (11.0-16.0)
--- NOTE | 2018-11-23 08:32 | ORTHOPAEDICS PROGRESS NOTE ---
DATE: 11/23/2018 SUBJECTIVE: Ms. Valencia lying in bed this morning. Overall pain seems well controlled. OBJECTIVE: Left lower extremity exam: Just some very slight erythema to the distal medial leg. Not that much swelling on exam today. When she tries to dorsiflex the ankle, we could see all the toes go up. She can dorsiflex a little bit at the ankle but not near as well as the right side. IMAGING: MRI was reviewed, which shows a tibialis anterior tendon rupture and cellulitis. There is a little bit of signal changes in the medial cuneiform. ASSESSMENT: 1. Right tibialis anterior rupture. 2. Left leg cellulitis plan. PLAN: I discussed with Erik about this left leg. She does have a tibialis anterior rupture. I would recommend surgical intervention for that so that she does not have a sustained footdrop. Unfortunately though with cellulitis I would not recommend doing that operation right now. I would let her cellulitis resolve before we did surgery to reattach the tibialis anterior tendon. In the meantime, she will be in a boot. She can be weight bear as tolerated while in the boot. There was some concern for osteomyelitis possibly in the medial cuneiform. It is a little bit of a holden area. You can get signal change in the bone just from the tibialis anterior tendon rupturing off of it which could account for the signal or it could be some signal from osteomyelitis. She is not having a lot of this swelling and erythema down on that area of the foot so would just watch things at this time. I would not recommend a surgical debridement of it right now. I would like to see her in clinic in about a week or 2. We will continue to follow. When it looks like she has resolved her cellulitis we will talk about repairing that tibialis anterior tendon. cc: Hermilo Sheldon MD
[2018-11-23 08:39] LABS: BASO# 0.01 X1000 (0.0-0.2); BASO% 0.1 % (0.0-0.8); EOS# 0.04 X1000 (0.0-0.7); EOS% 0.4 % (0.0-10.0); HEMATOCRIT 32.9 % (37.0-47.0); HEMOGLOBIN 10.5 g/dL (12.0-16.0); IMM GRAN# 0.02 X1000 (0.0-0.04); IMM GRAN% 0.2 % (0.0-0.5); LYMPH# 0.88 X1000 (1.2-3.4); LYMPH% 9.6 % (20.5-51.1); MCH 28.8 PG (27-31); MCHC 31.9 g/dL (33-37); MCV 90.4 FL (81-99); MONO# 0.44 X1000 (0.11-0.59); MONO% 4.8 % (1.7-9.3); MPV 10.6 FL (7.4-10.4); NEUT# 7.73 X1000 (1.4-6.5); NEUT% 84.9 % (42.2-75.2); PLT 166 X1000 (130-400); RBC 3.64 XMIL (4.2-5.4); RDW 18.5 % (11.5-14.5); WBC 9.12 X1000 (4.8-10.8)
[2018-11-23 08:46] LABS: CALCIUM 8.9 mg/dL (8.8-10.2); CREATININE 1.7 mg/dL (0.5-0.9); POTASSIUM 4.8 mmol/L (3.5-5.1)
[2018-11-23] MEDS ORDERED: CARDIZEM CD PO SCH (09:00)
[2018-11-23] MEDS: SINEMET 25/100 PO SCH ×2 (10:16→13:42)
[2018-11-23] MEDS: TRICOR PO SCH (10:16)
--- NOTE | 2018-11-23 11:35 | INFECTIOUS DISEASE PROGRESS NO ---
DATE: 11/23/2018 SUBJECTIVE: Ms. Valencia is going home today and the plan will be for her to have treatment for left lower extremity tenosynovitis, tendinitis w/cellulitis and possible osteomyelitis. We will plan on giving her daptomycin 700 mg IV daily and Rocephin 2 g IV daily for a total of 6 weeks. We will see her back in our office in 3 weeks. We have discussed the side effects of these medications to watch for and report, which include rash, diarrhea, muscle aches and pains more than her usual amount, as well as oral candidiasis and vaginal yeast. These plans have been discussed with and recommended by Dr. Sanchez. Dictated by SILAS Muir for Klever Sanchez MD cc: Klever Sanchez MD MTDTyra
[2018-11-23 12:11] VITALS: BP 131/68
[2018-11-23] MEDS: CUBICIN 700 MG in NS 100 ML IV SCH (13:41)
[2018-11-23] MEDS: ROCEPHIN 2 GM in NS 50 ML IV SCH (13:42)
--- NOTE | 2018-11-27 15:44 | DISCHARGE SUMMARY ---
ADMISSION DATE: 11/18/2018 DISCHARGE DATE: 11/23/2018 CONSULTATIONS: 1. Infectious Disease: Dr. Sanchez. 2. Orthopedic Surgery: Dr. Sheldon. 3. Cardiology: Dr. Barber. STUDIES: MRI of the left foot showing likely infectious tenosynovitis/tendinitis of the tibialis anterior tendon that was suggesting focal tendon rupture. This was associated with cellulitis overlying it. Also, it showed a mild signal abnormality in the medial cuneiform, which was favored to be developing osteomyelitis. Renal ultrasound unremarkable with no sign of obstruction. Venous ultrasound of the leg with no evidence of DVT. Initial creatinine 2.6. Discharge creatinine 1.7. HOSPITAL COURSE: The patient is a 67-year-old female with history of chronic lower extremity edema, venous stasis, vascular insufficiency, and multiple previous bouts of cellulitis. She had noticed some bruising on the left heel, and came in for evaluation. There had been concern for cellulitis as an outpatient. She has been started on Bactrim. On initial evaluation in the ED, she was found to have bilateral lower extremity cellulitis, acute kidney injury with a creatinine of 2.6, and uncontrolled diabetes. There was also concern for possible osteomyelitis so MRI was obtained which noted likely infectious tendinitis and osteomyelitis with possible partial tendon rupture as above. Orthopedics, Surgery and Infectious Disease were involved. Orthopedic Surgery recommended to put the patient in a boot, and stated that she may have to have surgery eventually, but not right now. Infectious Disease saw the patient and changed the antibiotics from ceftaroline and Zosyn to Rocephin and daptomycin. PICC line was obtained, and his antibiotics were set up for extended course as an outpatient. Continue treatment of the tendon, and bone infection. Her acute kidney injury resolved rapidly with fluids and treatment of her underlying infection. Creatinine trended from 2.6 down to 1.6, which would was fairly stable at. She had 1 creatinine as low as 1.2, but all further readings were 1.5 to 1.7 over a period of 4 to 5 days so it was felt like this was likely an outline there. Patient had one transient episode of hyperkalemia, but this resolved spontaneously. Potassium was only 5.2, and no EKG changes or other symptoms were noted so no aggressive intervention was required. She had a known episode of atrial fibrillation, and did have a brief episode of rapid ventricular response, but converted back spontaneously. Cardiology was involved and recommended coughing with rate control because of concerns regarding possible sinus node dysfunction. The addition of low-dose Cardizem resulted in some bradycardia so this was discontinued, and her home metoprolol was slightly increased, which seem to have good effect. Her blood sugar was uncontrolled initially, but did respond to slow titration of her medications. Other issues remained stable. DISCHARGE VITAL SIGNS: Temperature 97.5 degrees, pulse 64, respirations 14, blood pressure 131/68, and O2 saturation 93% on room air. DISCHARGE DIET: Cardiac diabetic. DISCHARGE MEDICATIONS: 1. Rocephin 2 g IV daily. 2. Daptomycin 7 mg IV daily. 3. Toprol-XL 50 mg p.o. daily. 4. Lisinopril 2.5 mg p.o. daily. 5. Xarelto 20 mg p.o. daily. 6. Ultram as previously prescribed. 7. Sinemet 25/100 t.i.d. 8. Simvastatin 10 mg p.o. daily. 9. Melatonin 10 mg p.o. at bedtime as needed. 10. Insulin 70/30 as previously prescribed. 11. Gabapentin 600 mg as previously prescribed. 12. Fenofibrate 54 mg daily. 13. Cymbalta 30 mg p.o. at bedtime. 14. Allopurinol 300 mg p.o. daily. 15. Actos 30 mg p.o. daily. 16. Pramipexole 1.5 mg p.o. q.8 hours. FOLLOWUP AND PLAN: Patient discharged home with PICC line on IV antibiotics now for treatment of infectious tendinitis and osteomyelitis. The patient to follow-up with PCP for blood pressure check and discussion of her insulin requirements. The patient is to follow up with ID for infection and with Orthopedics to re-evaluate her partial tendon rupture. TIME SPENT: Greater than 30 minutes spent arranging discharge and counseling patient.
== END 2018-11-23 15:20 | disposition home or self-care (01) | DRG 638 ==
LOC: P.ED 10:51 → SUATTDRO 14:27 → P.MEDSURG 14:27 → 2N 11-21 22:38
PROVIDERS: ATTEND Internal Medicine

== ENCOUNTER 2018-12-02 17:04 | Observation (INO) ==
[2018-12-02 17:39] LABS: HEMATOCRIT 36.2 % (37.0-47.0); HEMOGLOBIN 11.2 g/dL (12.0-16.0); MCH 27.8 PG (27-31); MCHC 30.9 g/dL (33-37); MCV 89.8 FL (81-99); PLT 105 X1000 (130-400); RBC 4.03 XMIL (4.2-5.4); RDW 16.6 % (11.5-14.5); WBC 5.14 X1000 (4.8-10.8)
[2018-12-02 17:40] LABS: BASO# 0.01 X1000 (0.0-0.2); BASO% 0.2 % (0.0-0.8); EOS# 0.08 X1000 (0.0-0.7); EOS% 1.6 % (0.0-10.0); IMM GRAN# 0.02 X1000 (0.0-0.04); IMM GRAN% 0.4 % (0.0-0.5); LYMPH# 0.58 X1000 (1.2-3.4); LYMPH% 11.3 % (20.5-51.1); MONO# 0.28 X1000 (0.11-0.59); MONO% 5.4 % (1.7-9.3); NEUT# 4.17 X1000 (1.4-6.5); NEUT% 81.1 % (42.2-75.2)
[2018-12-02 17:46] LABS: INR 1.35; PROTIME 16.9 Seconds (11.0-16.0)
[2018-12-02 18:15] LABS: ALB/GLOB RATIO 1.7; ALBUMIN 4.5 g/dL (3.5-5.0); CALCIUM 9.3 mg/dL (8.8-10.2); CREATININE 1.4 mg/dL (0.5-0.9); POTASSIUM 4.4 mmol/L (3.5-5.1); TOTAL BILIRUBIN 0.49 mg/dL (0.20-1.00); TOTAL PROTEIN 7.2 g/dL (6.3-8.3)
--- NOTE | 2018-12-02 18:18 | EKG Report ---
Test Performed on : 12/02/2018 5:20:17 PM Test Reason : sob Blood Pressure : / mmHG Vent. Rate : 105 BPM Atrial Rate : 105 BPM P-R Int : 242 ms QRS Dur : 086 ms QT Int : 322 ms P-R-T Axes : 034 -22 040 degrees QTc Int : 425 ms Sinus tachycardia. with 1st degree AV block. Possible Left atrial enlargement Left ventricular hypertrophy Abnormal ECG When compared with ECG of 23-NOV-2018 06:25, Vent. rate has increased BY 52 BPM Non-specific change in ST segment in Lateral leads Unconfirmed Result
[2018-12-02] MEDS ORDERED: LASIX IV ONE (18:28)
--- NOTE | 2018-12-02 18:34 | Diag Imaging Result Doc PS360 ---
CHEST-2 VIEWS - 12/02/2018 INDICATION: sob COMPARISON: None FINDINGS: There is a left PICC line in good position at the upper SVC. There is significant cardiomegaly and pulmonary vascular congestion. There is a small focal infiltrate in the left upper lobe. No large pleural effusion. IMPRESSION: Small infiltrate in the left upper lobe. Please follow-up until clear. Cardiomegaly and pulmonary vascular congestion. Electronically signed by Blanco Fallon 12/02/2018 6:32 PM
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
[2018-12-02] MEDS ORDERED: DUONEB (A & A) INH ONE (21:03)
[2018-12-03] MEDS ORDERED: VANCOMYCIN IV PER PHARMACY MISC SCH (01:05)
[2018-12-03] MEDS ORDERED: ZOFRAN IV PRN (01:05)
[2018-12-03] MEDS ORDERED: ULTRAM PO PRN (01:05)
--- NOTE | 2018-12-03 01:14 | HISTORY AND PHYSICAL ---
CHIEF COMPLAINT: Dyspnea. HISTORY OF PRESENT ILLNESS: The patient is a 68-year-old white female with recent admission for bilateral cellulitis, left extremity osteomyelitis, and infectious tendinitis with partial rupture. She was discharged on 11/23/2018 to go home on Rocephin and daptomycin. The patient had issues with kidney failure on her previous visit, and when she was discharged the last time her Lasix was held because of her kidney issues. The patient's lower extremity symptoms have continued to improve on the home Rocephin and daptomycin, but over the last 2 or 3 days she has had slowly progressive dyspnea with fatigue and decreased exercise tolerance. She does endorse feeling both hot and cold but has checked her temperature multiple times and has had no fevers at home. She denies chest pain or dysuria. Her cough is largely nonproductive. She has had some increased lower extremity edema. Her dyspnea and cough have been progressive and today worsened enough for her to come in. On evaluation in the ED she was found to have an elevated BNP, low normal oxygenation. She was admitted for further evaluation and treatment. REVIEW OF SYSTEMS: Twelve point review of systems was negative except as per the HPI. ALLERGIES: Allergy to Bactrim kidney failure, intolerant of some codeine, she has nausea. PAST MEDICAL HISTORY: CKD 3, diabetes, atrial fibrillation, hypertension, Parkinson's, hyperlipidemia, left foot osteomyelitis, left foot infectious tendinitis with partial rupture. PAST SURGICAL HISTORY: Cholecystectomy, tubal ligation, rotator cuff repair, Achilles rupture repair. SOCIAL HISTORY: The patient denies tobacco, alcohol or illicit drug use. FAMILY HISTORY: Parents , mom with a stroke, father with cancer of uncertain type. LABORATORY DATA: WBC 5.1, hemoglobin 11.2, hematocrit 36.2, platelets 105,000. Sodium 141, potassium 4.4, BUN 18, creatinine 1.4, glucose 169, total bilirubin 0.49, AST 19, ALT 5, alkaline phosphatase 69. Troponin negative. BNP 2674. Total protein 7.2, albumin 4.5. IMAGING: Chest x-ray with possible tiny infiltrate in the left upper lobe, cardiomegaly, pulmonary vascular congestion. VITAL SIGNS: T-max 98.5 degrees, pulse 20, blood pressure 144/92, O2 saturation 92% on room air. PHYSICAL EXAMINATION: GENERAL: No acute distress. VITAL SIGNS: As above. HEENT: Normocephalic, atraumatic. Moist mucous membranes. NECK: No cervical adenopathy. CARDIOVASCULAR: Slightly tachycardic but currently regular. No murmurs noted. PULMONARY: Bibasilar crackles noted. Otherwise clear to auscultation bilaterally. ABDOMEN: Soft, nontender, nondistended. Bowel sounds positive. EXTREMITIES: With 2+ edema in bilateral lower extremities. Erythema noted on previous hospitalization appears to be resolved. NEUROLOGIC: Cranial nerves grossly intact. No focal deficits identified. PSYCHIATRIC: Normal mood and affect. Awake, alert and oriented x3. SKIN: No new rashes or lesions identified. ASSESSMENT AND PLAN: 1. Dyspnea, likely acute on chronic CHF, possible pneumonia. The patient with progressive dyspnea and lower extremity edema over the last few days since discontinuing her Lasix. No previous diagnosis of CHF, but the patient is at high risk with diabetes, hypertension, morbid obesity, and paroxysmal atrial fibrillation. Already had some improvement with dose of Lasix in the ER. We will give another dose of Lasix in the morning, and get an echocardiogram to assess her cardiac function. Radiology concern for tiny infiltrate in the left upper lobe on x-ray. Relatively low suspicion for pneumonia given current treatment with IV antibiotics, lack of productive cough and a fairly unimpressive chest x-ray, no fever and normal white count, but we will go ahead and get a CT chest to rule out. We will change antibiotics to vancomycin and cefepime for now, but if CT shows no clear evidence of pneumonia then we will likely change back to the Rocephin and daptomycin that she has been on at home as that seems to be doing quite well for her lower extremity infection. If the patient does well with diuresis and echocardiogram does not show profoundly low ejection fraction then can likely discharge home in a couple of days back on oral Lasix, which she was on prior to her previous admission. 2. Left lower extremity osteomyelitis and infectious tendinitis with partial tendon rupture. Has been on Rocephin and daptomycin home as per ID. Appears to be doing well from this standpoint. As per Orthopedics previous instructions the patient is to be minimal weightbearing on the left foot and only when in her boot, which they did not bring with them. I talked with family and they are planning on bringing her boot up. Antibiotics as above. 3. Paroxysmal atrial fibrillation. The patient with atrial fibrillation with RVR on previous admission. Appears to be normal sinus rhythm currently, but we will monitor closely and continue home beta gaurav. We will continue home Xarelto for now. 4. Diabetes mellitus. We will place on sliding scale and monitor. A1c was 7.1 a couple of months ago. 5. Hypertension. Continue home Toprol-XL and lisinopril. 6. Parkinson's. Continue home Sinemet. No significant spasticity currently. 7. Hyperlipidemia noted. Continue home statin.
[2018-12-03] MEDS ORDERED: VANCOMYCIN 1 GM/NS 1 GM/250 ML IVPB IV ONE (02:00)
[2018-12-03] MEDS: MAXIPIME 2 GM in NS 100 ML IV SCH ×2 (02:38→12:31)
[2018-12-03 04:53] LABS: BASO# 0.02 X1000 (0.0-0.2); BASO% 0.4 % (0.0-0.8); EOS# 0.01 X1000 (0.0-0.7); EOS% 0.2 % (0.0-10.0); HEMATOCRIT 29.9 % (37.0-47.0); HEMOGLOBIN 9.4 g/dL (12.0-16.0); LYMPH# 0.82 X1000 (1.2-3.4); LYMPH% 15.7 % (20.5-51.1); MCH 27.7 PG (27-31); MCHC 31.4 g/dL (33-37); MCV 88.2 FL (81-99); MONO# 0.28 X1000 (0.11-0.59); MONO% 5.4 % (1.7-9.3); MPV 10.3 FL (7.4-10.4); NEUT# 4.08 X1000 (1.4-6.5); NEUT% 78.3 % (42.2-75.2); PLT 90 X1000 (130-400); RBC 3.39 XMIL (4.2-5.4); RDW 16.5 % (11.5-14.5); WBC 5.21 X1000 (4.8-10.8)
[2018-12-03] MEDS ORDERED: MIRAPEX PO SCH (05:00)
[2018-12-03] MEDS: ASPIRIN PO SCH ×2 (05:00→09:10)
[2018-12-03 05:05] LABS: CALCIUM 8.6 mg/dL (8.8-10.2); CREATININE 1.2 mg/dL (0.5-0.9); MAGNESIUM 1.7 mg/dL (1.5-2.7); POTASSIUM 3.9 mmol/L (3.5-5.1)
[2018-12-03] MEDS ORDERED: VANCOMYCIN 1,500 MG in NS 250 ML IV ONE (06:00)
--- NOTE | 2018-12-03 06:01 | EKG Report ---
Test Performed on : 12/03/2018 05:12:56 AM Test Reason : acute chronic chf Blood Pressure : / mmHG Vent. Rate : 106 BPM Atrial Rate : 094 BPM P-R Int : 000 ms QRS Dur : 090 ms QT Int : 402 ms P-R-T Axes : 000 -22 016 degrees QTc Int : 533 ms Accelerated Junctional rhythm. Minimal voltage criteria for LVH, may be normal variant Cannot rule out Anterior infarct , age undetermined Prolonged QT Abnormal ECG When compared with ECG of 02-DEC-2018 17:20, (Unconfirmed) Junctional rhythm. has replaced Sinus rhythm. QT has lengthened Unconfirmed Result
[2018-12-03] MEDS: HUMALOG SUBQ SCH ×4 (07:00→22:03)
[2018-12-03] MEDS ORDERED: MAGNESIUM SULFATE 1 GM/D5W 1 GM/100 ML IVPB IV ONE (07:35)
[2018-12-03] MEDS ORDERED: KLOR-CON PO ONE (07:35)
[2018-12-03] MEDS: PRILOSEC PO SCH (07:37)
--- NOTE | 2018-12-03 07:41 | EKG Report ---
Test Performed on : 12/03/2018 07:21:54 AM Test Reason : change in rythm. Blood Pressure : / mmHG Vent. Rate : 095 BPM Atrial Rate : 312 BPM P-R Int : 000 ms QRS Dur : 088 ms QT Int : 366 ms P-R-T Axes : 000 -26 -21 degrees QTc Int : 459 ms Atrial flutter. with variable AV block. Moderate voltage criteria for LVH, may be normal variant Abnormal ECG When compared with ECG of 03-DEC-2018 05:12, (Unconfirmed) Atrial flutter. has replaced Junctional rhythm. QT has shortened Confirmed by Nadine LOZANO, Deuce Ding ([id number]) on 12/03/2018 8:28:23 AM
--- NOTE | 2018-12-03 08:00 | Diag Imaging Result Doc PS360 ---
EXAM: CT THORAX W/O CONTRAST INDICATION: likely edema/chf. ??pneumonia. TECHNIQUE: This exam was performed using automated exposure control, adjustment of mA or kV according to patient size, and/or use of iterative reconstruction technique. COMPARISON: None. FINDINGS: There is a large and very dense consolidation in the right lower lobe. There are smaller patchy consolidations in the left and right upper lobes near the lung apices and at the medial left lower lobe near the base. This is most consistent with multilobar pneumonia. There is no pleural fluid collection and no pneumothorax. There is no evidence of significant mediastinal or hilar lymphadenopathy. Air is no cardiomegaly. Limited views of the upper abdomen are essentially unremarkable. IMPRESSION: Bilateral multilobar pneumonia, worse at the right lower lobe, as described. Electronically signed by Rigoberto Wood 12/03/2018 7:57 AM
[2018-12-03] MEDS: LASIX IV SCH (09:25)
[2018-12-03] MEDS: ZYLOPRIM PO SCH (09:26)
[2018-12-03] MEDS: PRINIVIL PO SCH (09:26)
[2018-12-03] MEDS: NEURONTIN PO PRN ×2 (09:26→18:59)
[2018-12-03] MEDS: SINEMET 25/100 PO SCH ×3 (09:26→16:58)
[2018-12-03] MEDS: TYLENOL PO SCH ×2 (09:27→09:40)
[2018-12-03] MEDS: MIRAPEX PO SCH ×2 (09:50→16:58)
--- NOTE | 2018-12-03 10:20 | PROGRESS NOTE ---
DATE: 12/03/2018 SUBJECTIVE: This morning, Ms. Valencia refers to be doing fairly okay. She got admitted yesterday because of shortness of breath which has been progressively getting worse since she was discharged from the hospital on 11/27/2018, which is just about a week ago. She also refers that she was having some chills and fever. Upon presentation, she was evaluated. She was found to be slightly tachycardic but other vitals were normal and patient was saturating 96% on room air. This morning, she refers to be feeling a little better. OBJECTIVE: Vital Signs: Blood pressure is currently 179/93, pulse 94, respirations are 15, temperature is 96.9 degrees, patient is saturating 100%. General Examination: Ms. Valencia is a 68- year-old , female. She is in bed. Morbidly obese with a BMI of 40.4. HEENT: Mucosa is pink and moist. Anicteric. Acyanotic. Neck: Supple. Chest: Air entry is bilaterally reduced. There are crepitations in both lung condon, more so on the right posterior lung field. Cardiovascular: Regular rate and rhythm. Abdomen: Soft. Distended but nontender. Bowel sounds present. There is an old scar on the right upper quadrant, consistent with a classical open cholecystectomy. Extremities: No pedal edema but the left distal leg is minimally swollen and erythematous, and slightly tender on the proximal foot. BOOKMAKER MAP: The patient is awake, alert, and oriented. She has a residual left side resting tremor. Laboratory Data: WBC is 5.21, hemoglobin 9.4, platelet count of 90,000. Chemistry is also reviewed. Creatinine is 1.2, glucose is 222. Diagnostic Studies: A CT scan of the chest did show bilateral multilobar pneumonia, worse at the right lower lobe. ASSESSMENT: 1. Dyspnea on exertion with imaging studies confirming bilateral multifocal pneumonia. Patient has been started on intravenous antimicrobial therapy. This will be considered hospital- associated pneumonia. She has been covered for both gram-negative and methicillin-resistant Staphylococcus aureus. Interestingly, Ms. Valencia was home on Rocephin and daptomycin. Even on top of that, she has developed the pneumonia. We will consult infectious disease. 2. Left lower extremity osteomyelitis. The patient was on antimicrobial therapy at home. This has been changed. 3. Paroxysmal atrial fibrillation, currently rate controlled. 4. Diabetes mellitus. The patient is on insulin regimen. 5. Uncontrolled hypertension. We will continue titrating her medications. 6. History of Parkinson's disease. The patient is on antiparkinson medications. 7. Acute on chronic kidney failure. Creatinine seems to be at baseline. The patient has been started on vancomycin. I think she might probably be better off on Zyvox. I will, however, wait on the changes of the antibiotics to infectious disease. cc: Esteban Perdomo MD
--- NOTE | 2018-12-03 13:53 | ECHO REPORT ---
ORDER DATE: 12/03/2018 INDICATION: CHF. FINDINGS: 1. The right atrium is mildly enlarged at 4 cm. 2. Mild tricuspid regurgitation. RV systolic pressure of 42. 3. Normal RV size and systolic function. 4. Mild pulmonic insufficiency. 5. Mild to moderate left atrial enlargement with a dimension of 4.2 cm, volume index of 35. 6. There is no mitral valve prolapse. There is mainly posterior mitral annular calcification with restriction of the posterior leaflet. This results in moderate mitral stenosis with peak gradient of 15, mean of 5.6. There is mild mitral regurgitation. 7. Normal LV size, end-diastolic dimension of 4.7. Normal wall thicknesses with a posterior and interventricular septal wall thickness 1.1 cm each. Normal LV systolic function. Estimated EF is 60% with normal wall motion. 8. Aortic valve opens well. No evidence of stenosis or insufficiency. 9. Aorta appears normal in visualized segments. 10. No pericardial effusion seen. cc: Lester Pennington MD
[2018-12-03] MEDS: XARELTO PO SCH (16:58)
[2018-12-03] MEDS: TOPROL XL PO SCH (16:58)
--- NOTE | 2018-12-03 18:44 | Diag Imaging Result Doc PS360 ---
EXAM: CHEST-PORTABLE INDICATION: PICC line placement TECHNIQUE: One view COMPARISON: 12/02/2018 FINDINGS: The left upper lobe infiltrate is stable. No new consolidation is identified. Cardiac silhouette is stable. IMPRESSION: Stable chest. Electronically signed by Rigoberto Wood 12/03/2018 6:41 PM
--- NOTE | 2018-12-03 19:44 | INFECTIOUS DISEASE PROGRESS NO ---
DATE: 12/03/2018 PRESENT ILLNESS: The patient was sent home on a combination of daptomycin and Rocephin to treat a left foot and ankle for tenosynovitis, cellulitis and osteomyelitis. At home, she became very dyspneic and was readmitted to the hospital. It appears now that the patient may have developed pneumonia. MEDICATIONS: As mentioned above, the patient was on daptomycin, Rocephin. Now, since the patient is in the hospital, she is on a combination of vancomycin and cefepime. PHYSICAL EXAMINATION: Vital Signs: Temperature is 97.9 degrees, pulse 100, respirations 26, blood pressure 170/90. General: This is an ill-appearing elderly female. She is in no acute distress. Head/eyes/ears/nose/throat: She can hear my spoken words and see near objects. She does not have any white coating on her tongue. Neck: No meningismus. Lungs: Clear to auscultation. Cardiovascular: Heart rate is regular. Abdomen: Soft and nontender. Extremities: The patient's left leg is more swollen than the right leg, but neither leg is erythematous. There is a certain amount of tenderness in the left foot. LAB AND X-RAY: CBC shows a white count of 5210, hemoglobin 9.4, and platelet count 90,000. Creatinine is 1.2. GFR is 44. Liver functions are normal. CT scan of the chest shows bilateral pneumonia. ASSESSMENT AND PLAN: The patient has, as mentioned above, tendinitis, tenosynovitis, cellulitis and osteomyelitis. She also may have developed a superimposed pneumonia in both lungs. I agree with switching the patient from daptomycin and Rocephin to vancomycin and cefepime. I have ordered a procalcitonin level also. COMORBIDITIES: The patient is elderly. She is obese. She also has diabetes mellitus, Parkinson disease, and systemic lupus. cc: Klever Sanchez MD
[2018-12-03] MEDS: CYMBALTA PO SCH (22:02)
[2018-12-04] MEDS: MIRAPEX PO SCH ×3 (02:18→17:05)
[2018-12-04] MEDS: MAXIPIME 2 GM in NS 100 ML IV SCH ×2 (02:18→13:13)
[2018-12-04 05:53] LABS: BASO# 0.02 X1000 (0.0-0.2); BASO% 0.5 % (0.0-0.8); EOS# 0.12 X1000 (0.0-0.7); EOS% 2.7 % (0.0-10.0); HEMATOCRIT 30.3 % (37.0-47.0); HEMOGLOBIN 9.2 g/dL (12.0-16.0); LYMPH% 15.9 % (20.5-51.1); MCH 27.1 PG (27-31); MCHC 30.4 g/dL (33-37); MCV 89.4 FL (81-99); MONO% 6.8 % (1.7-9.3); MPV 10.9 FL (7.4-10.4); NEUT# 3.25 X1000 (1.4-6.5); NEUT% 74.1 % (42.2-75.2); PLT 99 X1000 (130-400); RBC 3.39 XMIL (4.2-5.4); RDW 16.8 % (11.5-14.5); WBC 4.39 X1000 (4.8-10.8)
[2018-12-04] MEDS ORDERED: VANCOMYCIN 2,050 MG in NS 500 ML IV SCH (06:00)
[2018-12-04 06:07] LABS: ALBUMIN 3.6 g/dL (3.5-5.0); CALCIUM 8.9 mg/dL (8.8-10.2); CREATININE 1.2 mg/dL (0.5-0.9); PHOSPHORUS 2.7 mg/dL (2.7-4.5); POTASSIUM 3.8 mmol/L (3.5-5.1)
[2018-12-04] MEDS: NEURONTIN PO PRN ×2 (06:12→20:21)
[2018-12-04] MEDS: VANCOMYCIN 2,000 MG in NS 500 ML IV SCH (06:12)
[2018-12-04] MEDS: PRILOSEC PO SCH (06:12)
[2018-12-04] MEDS: HUMALOG SUBQ SCH ×4 (06:13→20:22)
[2018-12-04] MEDS: PRINIVIL PO SCH (08:55)
[2018-12-04] MEDS: TYLENOL PO SCH (08:55)
[2018-12-04] MEDS: LASIX IV SCH (08:55)
[2018-12-04] MEDS: XARELTO PO SCH (08:55)
[2018-12-04] MEDS: TOPROL XL PO SCH (08:56)
[2018-12-04] MEDS: ZYLOPRIM PO SCH (08:56)
[2018-12-04] MEDS: SINEMET 25/100 PO SCH ×3 (08:56→17:05)
[2018-12-04] MEDS: ASPIRIN PO SCH (08:56)
--- NOTE | 2018-12-04 14:30 | INFECTIOUS DISEASE PROGRESS NO ---
DATE: 12/04/2018 PRESENT ILLNESS: The patient was being treated at home for a left foot and ankle tenosynovitis, cellulitis, and osteomyelitis. She, while at home, developed a bilateral pneumoniae. MEDICATIONS: The patient was on daptomycin and Rocephin. Now, she has been switched to a combination of vancomycin and cefepime. This will be day 1 of treatment with vancomycin and cefepime. PHYSICAL EXAMINATION: Vital Signs: Temperature is 97.6 degrees, pulse 102, respirations 18, blood pressure 120/81. General: This is an ill-appearing, elderly female. She is in no acute distress. Head, Eyes, Ears, Nose, and Throat: She can hear my spoken words and see near objects. She does not have any white patches in her mouth. Neck: No pain with movement. Lungs: Clear to auscultation. Cardiovascular: Heart rate is regular. Abdomen: Soft and nontender. Extremities: The patient's left leg is slightly more swollen than the right leg. Neither leg is erythematous and neither one is tender. LAB AND X-RAY: The patient's CBC shows a white count of 4390, hemoglobin 9.2, and platelet count 99,000. Creatinine is 1.2. GFR is 44. Procalcitonin is 0.35 which turns out to mean that pneumonia is likely. ASSESSMENT AND PLAN: The patient has left foot and ankle tendinitis, tenosynovitis, cellulitis, and osteomyelitis. She also has developed pneumoniae in both legs. The plan will be to continue vancomycin and cefepime. COMORBIDITIES: The patient is elderly, she is obese, she has diabetes mellitus, Parkinson's disease, and systemic lupus. cc: Klever Sanchez MD
--- NOTE | 2018-12-04 15:54 | PROGRESS NOTE ---
DATE: 12/04/2018 SUBJECTIVE: This morning Ms. Valencia refers to be doing a lot better. Breathing is getting better. No new complaints. OBJECTIVE: Vital signs: Blood pressure is 144/97, pulse of 105, respiration is 18, temperature 97.5 degrees. General: Ms. Valencia is a 68-year-old female. She was in bed, no distress. HEENT: Mucosa is pink and moist. Anicteric. Acyanotic. Neck: Supple. Chest: Good air entry bilaterally. Few crackles posteriorly. Cardiovascular: Regular rate and rhythm. No murmurs. Abdomen: Soft, distended. Bowel sounds present. There is an old scar in the right upper quadrant consistent with a classic open cholecystectomy. Extremities: No pedal edema. Minimal erythematous changes on the left distal leg that seem to be getting better. 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 She has a residual left side resting tremor from Parkinson disease. LABORATORY DATA: CBC is reviewed. The patient is slightly pancytopenic. Creatinine is 1.2. Procalcitonin is elevated. ASSESSMENT: 1. Bilateral multifocal pneumonia with elevated procalcitonin level. The patient is being treated for institution-related pneumonia. 2. Left lower extremity osteomyelitis. Patient was on daptomycin. This has been changed to vancomycin. 3. Paroxysmal atrial fibrillation. Currently rate controlled. 4. Diabetes mellitus. On insulin. 5. Uncontrolled hypertension on presentation, improved. 6. Acute on chronic renal failure. Stable. 7. History of Parkinson disease. The patient is on Sinemet and Mirapex. PLAN: So in general, I think Ms. Valencia seems to be doing a whole lot better. She is currently on cefepime with vancomycin. We are going to repeat a chest x-ray in the morning and re-evaluate her to see if she will be able to be discharged. Will be pending final recommendations from ID with regards to outpatient antimicrobial therapy. cc: Esteban Perdomo MD
[2018-12-04] MEDS: CYMBALTA PO SCH (20:21)
[2018-12-05] MEDS: MIRAPEX PO SCH ×3 (02:06→16:56)
[2018-12-05] MEDS: MAXIPIME 2 GM in NS 100 ML IV SCH ×2 (02:07→12:11)
[2018-12-05] MEDS: PRILOSEC PO SCH (06:13)
[2018-12-05] MEDS: HUMALOG SUBQ SCH ×4 (06:13→20:54)
[2018-12-05] MEDS: VANCOMYCIN 2,000 MG in NS 500 ML IV SCH (06:13)
--- NOTE | 2018-12-05 09:10 | Diag Imaging Result Doc PS360 ---
CHEST-2 VIEWS - 12/05/2018 INDICATION: hypoxia COMPARISON: 12/03/2018 FINDINGS: There has been decrease in the small focal infiltrate in the left lung apex. Stable mild cardiomegaly. No new infiltrates. Stable left PICC line in good position. IMPRESSION: Decrease in the small left focal infiltrate suggesting pneumonia. Electronically signed by Blanco Fallon 12/05/2018 9:07 AM
[2018-12-05] MEDS: PRINIVIL PO SCH (09:25)
[2018-12-05] MEDS: LASIX IV SCH (09:25)
[2018-12-05] MEDS: ZYLOPRIM PO SCH (09:26)
[2018-12-05] MEDS: TYLENOL PO SCH (09:26)
[2018-12-05] MEDS: XARELTO PO SCH (09:26)
[2018-12-05] MEDS: TOPROL XL PO SCH (09:26)
[2018-12-05] MEDS: SINEMET 25/100 PO SCH ×3 (09:26→16:56)
[2018-12-05] MEDS: ASPIRIN PO SCH (09:26)
[2018-12-05] MEDS: NEURONTIN PO PRN ×2 (09:26→16:59)
--- NOTE | 2018-12-05 10:22 | EKG Report ---
Test Performed on : 12/05/2018 09:54:40 AM Test Reason : rhythm change Blood Pressure : / mmHG Vent. Rate : 086 BPM Atrial Rate : 326 BPM P-R Int : 000 ms QRS Dur : 090 ms QT Int : 398 ms P-R-T Axes : 000 -27 -44 degrees QTc Int : 476 ms Atrial fibrillation. Minimal voltage criteria for LVH, may be normal variant Nonspecific ST and T wave abnormality Prolonged QT Abnormal ECG When compared with ECG of 03-DEC-2018 07:21, Atrial fibrillation. has replaced Atrial flutter. Nonspecific T wave abnormality now evident in Lateral leads Confirmed by Nadine LOZANO, Deuce Ding ([id number]) on 12/06/2018 8:19:45 AM
--- NOTE | 2018-12-05 11:58 | INFECTIOUS DISEASE PROGRESS NO ---
DATE: 12/05/2018 The patient was being treated at home for an ankle tenosynovitis, cellulitis, and osteomyelitis. While at home, she developed pneumonia. The patient is being discharged today back to home. I have put in a consult for social service to set up home IV antibiotics consisting of vancomycin 2 g IV daily and cefepime 2 g IV every 12 hours, both for 5 more weeks. I am requesting that the patient come to my office in 2-1/2 weeks and then again at 5 weeks, when hopefully we will be able to stop the antibiotics and take out her PICC. cc: Klever Sanchez MD
--- NOTE | 2018-12-05 14:34 | INFECTIOUS DISEASE PROGRESS NO ---
DATE: 12/05/2018 PRESENT ILLNESS: The patient is being treated for an ankle tenosynovitis, cellulitis, and osteomyelitis, as well as a pneumonia. MEDICATIONS: The patient, at home, had a week of Rocephin and daptomycin, and in the hospital, now for 2 days, she has been on cefepime and vancomycin. PHYSICAL EXAMINATION: Vital Sign: Temperature is 97.6 degrees, pulse 87, respirations 16, blood pressure 121/68. General: This is an obese, elderly female. She is in no acute distress. HEENT: She can hear my spoken words and see near objects. She does not have any white patches on her tongue. Neck: No pain with movement. Lungs: Clear to auscultation. Cardiovascular: Heart rate is irregular. Abdomen: Soft and nontender. Extremities: The patient's left foot and ankle are less swollen than when the patient came in, and also it is not erythematous or tender. Neurologic: The patient is alert. She can move her extremities. There is no tremor. IMAGING AND LABORATORY DATA: Chest x-ray shows decreased size of the left upper lobe infiltrate. There is no new CBC or BMP for today. ASSESSMENT AND PLAN: The patient now has approximately 9 days of treatment for her left foot and ankle tenosynovitis, cellulitis, and osteomyelitis, and she has had 2 days of treatment now for her pneumonia. The plan will be to continue vancomycin and cefepime for 33 more days to complete a 6-week treatment course. COMORBIDITIES: The patient is elderly. She is obese, and she has diabetes mellitus, Parkinson's disease, and systemic lupus. cc: Klever Sanchez MD
--- NOTE | 2018-12-05 18:03 | PROGRESS NOTE ---
DATE: 12/05/2018 SUBJECTIVE: This morning, Ms. Valencia for the most part referred to be doing a whole lot better. No new complaints. She still has some coughing but no expectoration. Later on during the day, I was called by the nurse that Ms. Valencia was having some chest discomfort and that her EKG had shown atrial fibrillation. Ms. Valencia has a history of paroxysmal atrial fibrillation which she was even evaluated by Cardiology on her last hospitalization. In any case, troponins were done. The first set is negative. The EKG only shows atrial fibrillation which is rate controlled. She is on metoprolol. OBJECTIVE: Current Vitals: Blood pressure is 121/68, pulse of 87, respirations 16. Temperature is 97.6 degrees. Patient is saturating 95% on room air. General: Ms. Valencia is a 68-year-old female. She is in bed. She is obese. BMI is 40.4. She is not in any distress. HEENT: Mucosa is pink and moist. Anicteric. Acyanotic. Neck: Supple. Chest: Good air entry bilateral. A few crackles to the posterior lung condon. Cardiovascular: Irregularly irregular but rate controlled. No murmurs. No rubs. GI: Abdomen is soft. There is some old scar in the right upper quadrant consistent with an open classic cholecystectomy. Extremities: No pedal edema. Minimal erythematous changes on the left distal leg. 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 She has a resting tremor in the left upper extremity from Parkinson's. LABORATORY DATA: Her glucose is 251. First set of troponin has been less than 0.010. ASSESSMENT AND PLAN: 1. Bilateral multifocal pneumonia. The patient is currently being treated for hospital- associated pneumonia. She is on vancomycin and cefepime, and ID plans to treat her for an extended period of time because of the osteomyelitis. 2. Left lower extremity osteomyelitis. Patient used to be on daptomycin, but this has been changed to vancomycin. She seems to be responding well. Please refer to length of therapy in ID notes. 3. Paroxysmal atrial fibrillation. The patient is currently rate controlled. She is still in atrial fibrillation. Was evaluated just about a week ago by Cardiology. The patient is on metoprolol. She is currently asymptomatic, and she is also on Xarelto. 4. Diabetes mellitus on insulin. 5. Uncontrolled hypertension on presentation, improved. 6. [id number] renal failure, stable. 7. History of Parkinson disease. Patient is on Sinemet and Mirapex. 8. Chest pain. I think this is most likely related to her coughing spells. Her initial troponin is negative. EKG only shows atrial fibrillation which is rate controlled and no ST-segment abnormalities. We are going to repeat her troponins x3 and also repeat her EKG in the morning. If the troponins are negative and EKG remains the same, I think Ms. Valencia would be stable for discharge. ID will dictate the length of her antimicrobial therapy and her outpatient follow-up. cc: Esteban Perdomo MD MTDD
[2018-12-05] MEDS: CYMBALTA PO SCH (20:54)
[2018-12-06] MEDS: MAXIPIME 2 GM in NS 100 ML IV SCH ×2 (02:16→12:35)
[2018-12-06] MEDS: MIRAPEX PO SCH ×2 (02:16→08:31)
[2018-12-06 06:12] LABS: HEMOGLOBIN 10.1 g/dL (12.0-16.0); RBC 3.69 XMIL (4.2-5.4); WBC 4.04 X1000 (4.8-10.8)
[2018-12-06 06:13] LABS: BASO# 0.03 X1000 (0.0-0.2); BASO% 0.7 % (0.0-0.8); EOS# 0.13 X1000 (0.0-0.7); EOS% 3.2 % (0.0-10.0); HEMATOCRIT 32.9 % (37.0-47.0); IMM GRAN# 0.02 X1000 (0.0-0.04); IMM GRAN% 0.5 % (0.0-0.5); LYMPH% 24.8 % (20.5-51.1); MCH 27.4 PG (27-31); MCHC 30.7 g/dL (33-37); MCV 89.2 FL (81-99); MONO# 0.23 X1000 (0.11-0.59); MONO% 5.7 % (1.7-9.3); MPV 10.5 FL (7.4-10.4); NEUT# 2.63 X1000 (1.4-6.5); NEUT% 65.1 % (42.2-75.2); PLT 125 X1000 (130-400); RDW 16.2 % (11.5-14.5)
[2018-12-06] MEDS: PRILOSEC PO SCH (06:15)
[2018-12-06] MEDS: HUMALOG SUBQ SCH ×2 (06:15→11:11)
[2018-12-06 06:35] LABS: AGAP 14; BUN 17 mg/dL (8-22); CALCIUM 8.7 mg/dL (8.8-10.2); CHLORIDE 102 mmol/L (98-107); COSMO 291; CREATININE 0.9 mg/dL (0.5-0.9); ESTIMATED GFR > 60; GLUCOSE 207 mg/dL (70-104); POTASSIUM 3.8 mmol/L (3.5-5.1); SODIUM 142 mmol/L (136-145); TCO2 26 mmol/L (25-35)
--- NOTE | 2018-12-06 08:24 | EKG Report ---
Test Performed on : 12/06/2018 08:17:03 AM Test Reason : CP Blood Pressure : / mmHG Vent. Rate : 101 BPM Atrial Rate : 108 BPM P-R Int : 260 ms QRS Dur : 082 ms QT Int : 386 ms P-R-T Axes : 000 -32 -11 degrees QTc Int : 500 ms Sinus rhythm. with 1st degree AV block. Left axis deviation Nonspecific ST and T wave abnormality Abnormal ECG When compared with ECG of 05-DEC-2018 09:54, Sinus rhythm. with 1st degree AV block. has replaced Atrial fibrillation. Confirmed by Nadine LOZANO, Deuce Ding ([id number]) on 12/06/2018 8:47:44 AM
[2018-12-06] MEDS: ASPIRIN PO SCH (08:31)
[2018-12-06] MEDS: TYLENOL PO SCH (08:31)
[2018-12-06] MEDS: PRINIVIL PO SCH (08:31)
[2018-12-06] MEDS: XARELTO PO SCH (08:31)
[2018-12-06] MEDS: TOPROL XL PO SCH (08:31)
[2018-12-06] MEDS: ZYLOPRIM PO SCH (08:31)
[2018-12-06] MEDS: SINEMET 25/100 PO SCH ×2 (08:31→12:35)
--- NOTE | 2018-12-06 09:18 | PROGRESS NOTE ---
DATE: 12/06/2018 SUBJECTIVE: This patient is resting comfortably in bed. She is still complaining of some chest pain, but I do believe it is related to her cough, she has been treated here for bilateral multifocal pneumonia and also osteomyelitis. Her troponins were negative x3. Yesterday, she was in atrial fibrillation, but today she has a junctional rhythm, I will call to Cardiology Department to evaluate this patient. She has been on beta blockers. OBJECTIVE: Vital Signs: Temperature 99 degrees, pulse 96 respiratory rate 17, blood pressure 147/79, oxygen saturation 96 on room air. HEENT: Head normocephalic. No trauma. PERRLA. Neck: Supple. No JVD. No masses. Central trachea. Chest: A few bilateral crackles, mostly at the bases. Cardiovascular: Regular rate and rhythm. No rubs. No murmurs. Gastrointestinal: Abdomen is soft, nontender, nondistended. She has an old scar in the right upper quadrant consistent with an open classic cholecystectomy. Extremities: Minimal erythematosus changes on the distal left leg. Neurological: This patient is awake she is oriented. She does have resting tremors, mostly in the upper extremities for from Parkinson's. LABORATORY DATA: WBC 4, hemoglobin 10.1, hematocrit 32.9, platelet 125,000. Sodium 142, potassium 3.8, chloride 102, bicarbonate 26, BUN 17, creatinine 0.9 glucose 207, calcium 8.7. ASSESSMENT AND PLAN: 1. bilateral multifocal pneumonia. Continue with treatment per Infectious Disease Department. The plan is to send this patient with IV antibiotics and it looks like everything has been set up already. 2. Left lower extremity osteomyelitis, this patient used to be on daptomycin but this has been changed to vancomycin now, we need to complete 6 weeks of treatment. 3. Paroxysmal atrial fibrillation, now converted to junctional rhythm. Cardiology Department has been consulted. She is already on Xarelto. She was complaining of chest pain yesterday, but I believe it is mostly from her cough, it is not typical for typical for acute coronary syndrome and troponins are negative x3. 4. Type 2 diabetes, on insulin. 5. Uncontrolled hypertension on presentation, improved. 6. Acute on chronic kidney disease, resolved. 7. History of Parkinson disease, continue with Sinemet and Mirapex. 8. Chest pain, likely related to her cough spells due to pneumonia. Her troponins were negative. EKG yesterday showed atrial fibrillation with which was rate controlled. I did not see any ST abnormality. Today I repeated the EKG and she has a junctional rhythm with a heart rate in the 100s,, I have requested an evaluation by Cardiology Department. 9. She seems to be stable. I will wait for the final recommendations of Cardiology Department so I can discharge the patient home with antibiotics. cc: Arnaldo Ochoa MD
[2018-12-06 12:48] VITALS: BP 138/71
[2018-12-06] MEDS ORDERED: NS 250 ML ONE (13:51)
--- NOTE | 2018-12-06 15:34 | CARDIOLOGY CONSULTATION ---
DATE: 12/06/2018 CONSULTATION REQUESTED BY: The hospitalist service. REASON FOR CONSULTATION: Patient with atrial fibrillation, paroxysmal. HISTORY: Mrs. Valencia was admitted to the hospital on December 02. At that time, she presented complaining of shortness of breath, fever, and she was found to have intermittent and paroxysmal atrial fibrillation. Her chest x-ray initially indicated a small infiltrate in the left upper lobe and subsequently they did a chest CT that shows bilateral multilobar pneumonia, worse at the right lower lobe. She has been seen by the Infectious Disease service and is being treated for pneumonia and also for cellulitis of the left leg. The patient has been noted on telemetry to have intermittent atrial fibrillation. Of note, her CT of the chest that shows mild calcification at the level of the LAD and also right coronary artery. There is no pericardial effusion. The lung portion of the CT definitely indicates pneumonia in the right lung. There is no question about that. The patient has experienced some tightness in the chest of mild degree. Her troponins have been checked several times, sometimes are negative. The patient at this time feels comfortable. Plans are made to send her to her house with IV antibiotic infusion. This morning, the hospitalist service was concerned because the EKG done this morning showed 1st degree AV block (done at 8:17 A.M.) .The computer reading indicated "accelerated junctional rhythm".That motivated this consultation. PAST MEDICAL HISTORY: 1. Paroxysmal atrial fibrillation. She is normally followed by Dr. Ladonna Monet logger in [place]. 2. The patient also has a history of hypertension. 3. She is obese. The BMI is about 38. 4. She has dyslipidemia. 5. Insulin requiring diabetes mellitus. 6. She has Parkinson's disease. 7. Depression. 8, History of sleep apnea syndrome. SURGICAL HISTORY: 1. Tubal ligation. 2. Cholecystectomy. 3. Shoulder surgery. 4. Tonsillectomy. SOCIAL HISTORY: She is . She retired. She has children. Not a drinker or smoker. HOME MEDICATIONS: Listed at the time of this admission included: 1. Acetaminophen. 2. Allopurinol 300 daily. 3. Carbidopa levodopa 1 tab 3 times a day. 4. Rocephin 2 g daily. 5. Daptomycin 700 mg IV daily. 6. Cymbalta 30 mg at bedtime. 7. Nexium 20 mg daily. 8. Fenofibrate 54 mg daily. 9. Gabapentin 600 mg every 4 to 6 hours. 10. Zestril 2.5 daily. 11. Metoprolol 50 mg daily. 12. Pioglitazone 10 mg daily. 13. Mirapex 1.5 every 8 hours. 14. Xarelto 10 mg daily. 15. Tramadol 50 mg twice a day. ALLERGIC: Bactrim. Codeine. REVIEW OF SYSTEMS: No significant change other than the fact that she has cellulitis and probably tendinitis of the left leg. This is being handled by Infectious Disease. PHYSICAL EXAMINATION: Right now blood pressure is 147/79, temperature 98 degrees, pulse 93, respirations 16. General: Patient is awake, alert, oriented, in no distress. HEENT: Unremarkable. Chest: Shows diminished breath sounds at the right lung. Heart: Sounds are regular rhythm. I do not hear a gallop or murmur. Abdomen: Obese, nontender. Extremities: Show good pulses. No peripheral edema. Neuro: Exam follows commands, moves all 4extremities. The left leg shows some darkness of the skin of the distal left leg consistent with resolving cellulitis. LABORATORY DATA: Blood work: Sodium is 142, potassium 3.8, BUN 17, creatinine 0.9. Hemoglobin 10.1. IMPRESSION: 1. Patient who presented with cellulitis, tendinitis of the left leg. 2. Patient who presented with pneumonia right lower lobe. 3. History of paroxysmal atrial fibrillation. 4. Obesity. 5. Diabetes mellitus type 2. 6. Hypertension. 7. Patient with Parkinson's disease. 8. History of sleep apnea syndrome. 9. Abnormal ECG : 1st degree AV Block (computer reading indicating "accelerated junctional rhythm"). RECOMMENDATIONS: At this time, from cardiology viewpoint, I really do not have any further recommendations to give you. I would suggest to continue the beta gaurav as you had already planned and she may be discharged with instructions to follow with Dr. Monet who is the patient's primary logger. cc: Ugo Vallejo MD [facility]
[2018-12-06] MEDS ORDERED: VANCOMYCIN 1,700 MG in NS 250 ML IV SCH (17:00)
--- NOTE | 2018-12-23 16:04 | DISCHARGE SUMMARY ---
ADMISSION DATE: 12/03/2018 DISCHARGE DATE: 12/06/2018 DISCHARGE DIAGNOSES: 1. Bilateral multifocal pneumonia. 2. Left lower extremity osteomyelitis. 3. Paroxysmal atrial fibrillation, now presenting with normal sinus with first-degree AV block. 4. Type 2 diabetes on insulin. 5. Uncontrolled hypertension, on presentation. 6. Acute on chronic kidney disease. 7. History of Parkinson disease. 8. Atypical chest pain, likely related to cough and pneumonia. CONSULTS: Infectious Disease Department, Klever Vuong. Cardiology Department, Ugo Cordero. PROCEDURES PERFORMED: Chest x-ray dated 12/02/2018, impression: Small infiltrate in the left upper lobe, cardiomegaly, and pulmonary vascular congestion. Chest CT scan dated 12/03/2018, impression: Bilateral multilobar pneumonia, worse at the right lower lobe. Echocardiogram dated 12/03/2018, estimated ejection fraction 60%. There is mainly posterior mitral annular calcification with restriction of the posterior leaflet, this results in moderate bilateral mitral stenosis. Chest x-ray dated 12/05/2018, impression: Decrease in the small left focal infiltrate suggesting pneumonia. HOSPITAL COURSE: 68-year-old female with a past medical history of chronic kidney disease, diabetes, atrial fibrillation, hypertension, Parkinson disease, hyperlipidemia, left foot osteomyelitis, left foot infectious tendinitis and partial rupture admitted on 12/03/2018 and recently discharged on 11/23/2018 to go home with Rocephin and daptomycin, actually this patient's lower extremity symptoms have continued to improve on the Rocephin and daptomycin that she was discharged on but for 2 to 3 days prior to this new admission, she started having progressive dyspnea and fatigue and decreased exercise tolerance, with chills but no fever, no chest pain or dysuria, no productive cough. She had some increasing lower extremity edema. Chest x-ray showed some infiltrate, but the CT scan showed a bilateral multi lobar pneumonia that is worse on the right lower lobe, Infectious Disease Department was consulted and they started treating this patient. This patient was getting better on a daily basis. She was given antibiotics and oxygen supplementation. Also this patient started having some atrial fibrillation with RVR that then was treated and converted to sinus rhythm. Cardiology Department evaluated this patient. I had a concern of toxic junctional rhythm but actually it is normal sinus with first-degree AV block, this patient has been discharged home. She was feeling much better. She will follow up as an outpatient with her operational test mechanic and also follow-up with her primary care provider, Dr. Bergeron and Dr. Sanchez on 12/24/2018 at 10 a.m. At the moment of discharge, this patient was in a stable medical condition tolerating p.o. VITAL SIGNS: Temperature 98.3 degrees, pulse 98, respiratory rate 17, blood pressure 138/71, O2 saturation 99 on room air. HEENT, head normocephalic, no trauma. PERRLA. Neck is supple, no JVD. No masses. Central trachea. She has a few bilateral crepitus mostly at the bases. Cardiovascular RRR. No rubs. No murmur. GI, abdomen is soft, nontender, nondistended. She has an old scar in the right upper quadrant consistent with an open classic cholecystectomy. Extremities, minimal erythematous changes at the distal left leg. Neurological examination, patient is awake. She is oriented. She does have resting tremors, mostly at the level of the upper extremity from Parkinson's. LABORATORY: WBC 4, hemoglobin 10.1, hematocrit 32.9, platelets 125,000. Sodium 142, potassium 3.8, chloride 102, bicarbonate 26, BUN 17, creatinine 0.9, glucose 207, calcium 8.8. DISCHARGE MEDICATIONS: 1. Acetaminophen 1000 mg p.o. daily as needed. 2. Allopurinol 300 mg p.o. daily. 3. Aspirin 81 mg p.o. daily. 4. Sinemet 25/100 p.o. t.i.d. 5. Duloxetine 30 mg p.o. 6. Nexium 20 mg p.o. daily. 7. Fenofibrate 54 mg p.o. daily. 8. Gabapentin 600 mg p.o. q. 4 to 6 hours as needed. 9. Insulin 70/30, 35 units subcutaneously twice a day. 10. Lisinopril 2.5 mg p.o. daily. 11. Melatonin 10 mg p.o. at bedtime. 12. Metoprolol succinate 50 mg p.o. daily. 13. Actos 30 mg p.o. daily. 14. Mirapex 1.5 mg p.o. q. 8 hours. 15. Xarelto 30 mg p.o. daily. 16. Tramadol 53 mg p.o. b.i.d. TIME SPENT: Time spent discharging this patient 30+ minutes. cc: Arnaldo Ochoa MD
== END 2018-12-06 16:12 | disposition home health service (06) ==
LOC: ED 17:04 → SUATTDRO 12-03 00:51 → INTOOBSV 12-03 00:51 → EDIPHOLD 12-03 00:51 → 2N 12-03 07:30
PROVIDERS: ATTEND Internal Medicine